=== PATIENT | male | born 1940 | race Caucasian/White ===

== ENCOUNTER 2017-06-25 16:25 | Emergency (ER) | payer BC ==
[~2017-06-25] VITALS: Ht 175.3 cm; Wt 80.8 kg
[~2017-06-25 16:25] MED LIST changes: -MULT-1027 PO; -TIMO-31 OPR
[2017-06-25 16:29] VITALS: TEMP 36.8; Ht 175.3 cm; Wt 80.8 kg
[2017-06-25] MEDS ORDERED: TIMO-31 OPR (16:59)
[2017-06-25] MEDS ORDERED: MULT-1027 PO (16:59)
--- NOTE | 2017-06-25 17:15 | EMERGENCY ROOM VISIT NOTE ---
History Report prepared by Jasen: Jules Bravo Under the Supervision of: Dr. Jeffery Kowalski M.D. First contact with patient: 16:33 Chief Complaint: REFERRED BY DOCTOR Stated Complaint: BLOOD CLOT IN RT THIGH SENT BY History of Present Illness The patient is a 77 year old male who presents to the Emergency Room with complaints of a constant blood clot to his right upper leg beginning three days ago. The patient states he noticed a lump in the lower front portion of his right thigh. He reports he was watching TV when he placed his elbows on his knees and noticed the lump. The patient notes he was evaluated by his PCP today and had an ultrasound that stated the clot was superficial. He states he has a history of a DVT that spread to a PE a few years ago. The patient reports he was hospitalized for two days and placed on Coumadin for 9 months. He notes he has not had another DVT or PE since, and he has stopped Coumadin. The patient states he spends 2-3 hours a day on the computer during the winter, spring, and summer time. He denies fevers, cough, cold, congestion, recent travel, easy bleeding recently, blood in stool, and blood in urine. Source of History: patient Onset: three days ago Position: other (Right, upper, leg) Quality: other (blood clot) Timing: constant Associated Symptoms: No fevers, No cough Note: Denies: cold, congestion, recent travel, easy bleeding recently, blood in stool , and blood in urine. Review of Systems See HPI for pertinent positives & negatives. A total of 10 systems reviewed and were otherwise negative. Past Medical & Surgical Medical Problems: (1) DVT (deep venous thrombosis) (2) Pulmonary embolism Family History FH: heart disease Social History Smoking Status: Never Smoker Smokeless Tobacco Use: No Alcohol Use: occasionally Marital Status: Housing Status: lives with significant other Occupation Status: retired Current/Historical Medications Scheduled Multiple Vitamin (Multi Vitamin), 1 TAB PO DAILY Timolol Maleate (Ophth) (Timoptic), 1 DROPS OPR QAM Allergies Coded Allergies: No Known Allergies (Unverified , 06/25/17) Physical Exam Vital Signs Date Time Temp Pulse Resp B/P (MAP) Pulse Ox O2 Delivery O2 Flow Rate FiO2 06/25/17 17:52 70 18 162/88 96 06/25/17 16:29 36.8 67 20 154/94 96 Room Air Physical Exam GENERAL: Patient is in no acute distress. HEENT: No acute trauma, normocephalic atraumatic, mucous membranes moist, no nasal congestion, no scleral icterus. NECK: No stridor, no adenopathy, no meningismus, trachea is midline. LUNGS: Clear to auscultation bilaterally, no wheeze, no rhonchi, breath sounds equal. HEART: Without murmurs gallops or rubs, regular rate and rhythm. ABDOMEN: Soft, nontender, bowel sounds positive, no hernias, no peritonitis. EXTREMITIES: Fullness and some erythema to the distal medial right thigh. It is a few centimeters in size, mildly tender to palpation. No right leg edema. NEUROLOGIC: Oriented x 3, no acute motor or sensory deficits, no focal weakness. SKIN: No rash, no jaundice, no diaphoresis. Medical Decision & Procedures ER Provider Diagnostic Interpretation: Radiology results as stated below per my review and radiologist interpretation: PREHOSPITAL RIGHT LOWER EXTREMITY VENOUS DOPPLER IMPRESSION: No DVT within the right lower extremity. Small focus of thrombus within a superficial vein of the right medial/distal thigh. This corresponds to the patient's area of swelling. Electronically signed by: Emre Singh M.D. 06/25/2017 2:01 PM ED Course 1640: The patient was evaluated in room A10. A complete history and physical exam was performed. 1654: I discussed the patient's case with Dr. Singh, Radiology. He states the clot is very small and very far away from any deep vein. He notes they typically do not treat these clots with anticoagulation. 1658: I paged Dr. Chirinos's office. Case management called the office and it was closed. They have paged his on-call physician. 1745: I discussed the patient's case with Dr. Mills, [facility]. She states the patient was sent to the ED through [facility]. She suggested the patient is okay to be discharged. 1746: Reevaluated the patient. Discussed results and discharge instructions: he verbalized understanding and agreement. The patient is ready for discharge. Medical Decision The patient is a 77 year old male who presents to the ED with complaints of a constant blood clot. Differential diagnoses considered include DVT or superficial thrombophlebitis, cellulitis, clotting disorder, immobility, coagulopathy. Patient presents with a superficial thrombophlebitis of the distal medial right thigh. I did speak to the radiologist who read his ultrasound study. This is a small superficial clot and is not close to any deep vein. It was not felt that anticoagulation would be indicated. I did also speak with the [facility] outpatient physician on-call. No anticoagulation is required. The patient will be using Motrin 3 times a day for inflammation. Some warm compress and heat to the area are being suggested. The patient will return for spreading of the clot or worsening symptoms. He will be followed as an outpatient to see if things progress to the point where he needs anticoagulation. The patient was reassured. He was discharged home. Medication Reconcilliation Current Medication List: was personally reviewed by me Blood Pressure Screening Patient's blood pressure: Elevated blood pressure Blood pressure disposition: Referred to PCP Consults Time Called: 1652 Consulting Physician: Dr. Singh, Radiology Returned Call: 1653 I discussed the patient's case with Dr. Singh, Radiology. He states the clot is very small and very far away from any deep vein. He notes they typically do not treat these clots with anticoagulation. Additional Consults: Time Called: 1657 Consulted Physician: Dr. Mills, [facility] Returned Call: [phone] Additional Comments: I discussed the patient's case with Dr. Mills, [facility]. She states the patient was sent to the ED through [facility]. She suggested the patient is okay to be discharged. Impression Primary Impression: Superficial thrombophlebitis of right leg Scribe Attestation The scribe's documentation has been prepared under my direction and personally reviewed by me in its entirety. I confirm that the note above accurately reflects all work, treatment, procedures, and medical decision making performed by me. Departure Information Dispostion Home / Self-Care Referrals Tai Chirinos III, M.D. (PCP) Forms HOME CARE DOCUMENTATION FORM, IMPORTANT VISIT INFORMATION, WORK / SCHOOL INSTRUCTIONS Patient Instructions [facility] Additional Instructions warm compresses for 40 minutes at a time every few hours for the next week use motrin 600 mg (3 tabs) 3x per day for 1 week see ajay villasenor for a recheck in a few days return for fever or if symptoms seem to be worsening based on current literature and consults--coumadin is not needed for this type of superficial clot
[2017-06-25 17:52] VITALS: BP 162/88; PULSE 70; O2SAT 96
== END 2017-06-25 17:53 | disposition home or self-care (01) ==
LOC: C.EDB 16:27 → C.EDA 17:53
DX: I80.01 Phlebitis and thrombophlebitis of superficial vessels of right lower extremity (principal); Z86.711 Personal history of pulmonary embolism; Z86.718 Personal history of other venous thrombosis and embolism

== ENCOUNTER → 2017-06-25 | Outpatient (CLI) | payer BC, OTHER ==
[~2017-06-25] MED LIST: ENOX80IN SQ; MULT-1027 PO; TIMO-31 OPR; WARF5TAB90 PO
--- NOTE | 2017-06-25 14:03 | DIAGNOSTIC IMAGING REPORT ---
RIGHT LOWER EXTREMITY VENOUS DOPPLER HISTORY: RIGHT THIGH PAIN AND SWELLING COMPARISON STUDY: None. FINDINGS: There is normal compressibility, flow, and augmentation within the right lower extremity deep venous system. Small focal superficial thrombus seen within the medial distal thigh. IMPRESSION: No DVT within the right lower extremity. Small focus of thrombus within a superficial vein of the right medial/distal thigh. This corresponds to the patient's area of swelling. Electronically signed by: Emre Singh M.D. 06/25/2017 2:01 PM Dictated Date/Time: 06/25/2017 2:00 PM
== END | disposition home or self-care (01) ==
LOC: C.ULTRBC 13:19
PROVIDERS: ATTEND Family Medicine
DX: M79.89 Other specified soft tissue disorders (principal)

== ENCOUNTER 2023-10-30 06:27 | Observation (INO) ==
--- NOTE | 2023-09-11 11:47 | PAT Medication Instructions ---
Medication Instructions Date of Service September 11, 2023 Home Medications multivitamin 1 tab PO DAILY dorzolamide 22.3 mg-timolol 6.8 mg/mL eye drops 1 drp OPB BID tamsulosin 0.4 mg capsule 0.4 mg PO QAM warfarin 5 mg tablet 5 mg PO UD calcium carbonate 600 mg-vitamin D3 5 mcg (200 unit) capsule (Calcium 600 + D(3)) 1 cap PO DAILY furosemide 40 mg tablet 40 mg PO QAM PRN Fluid Retention prednisolone acetate 1 % eye drops,suspension 1 drp OPR BID ASK your prescriber and surgeon warfarin 5 mg tablet 5 mg PO UD DO NOT take the morning of surgery multivitamin 1 tab PO DAILY calcium carbonate 600 mg-vitamin D3 5 mcg (200 unit) capsule (Calcium 600 + D(3)) 1 cap PO DAILY furosemide 40 mg tablet 40 mg PO QAM PRN Fluid Retention Take morning of surgery With a small sip of water, OTHERWISE NOTHING TO EAT OR DRINK AFTER MIDNIGHT: dorzolamide 22.3 mg-timolol 6.8 mg/mL eye drops 1 drp OPB BID tamsulosin 0.4 mg capsule 0.4 mg PO QAM prednisolone acetate 1 % eye drops,suspension 1 drp OPR BID Take evening before surgery dorzolamide 22.3 mg-timolol 6.8 mg/mL eye drops 1 drp OPB BID prednisolone acetate 1 % eye drops,suspension 1 drp OPR BID Other Notes If you have any questions please call us at [phone] or [phone] or [phone] or [phone]
--- NOTE | 2023-09-21 11:48 | Anesthesiology Consultation ---
Date of Service September 21, 2023 Assessment & Plan (1) Encounter for pre-operative examination: - Check coags AM DOS (warfarin instructions per surgeon/S AC clinic. Patient has not received preop warfarin instructions or if bridging being done yet. Will follow-up with patient once recommendations provided to ensure appropriate neuraxial timing). - Infectious disease screening: Per assessment on 09/21/23: No known recent infectious disease contacts or current infectious disease symptoms. - Outpatient joint assessment: Pt currently scheduled for inpatient pathway. If surgeon requests review for outpatient joint pathway, patient is not recommended candidate for outpatient joint program from anesthesia standpoint based upon available information. - PCP visit (09/03/23): "LLE swelling. Saw [facility] 08/20. Doppler done- Neg for DVT. Had INR. Done also.. He has 2+ bilateral edema up to knees.. Venous stasis of lower extremity.. Furosemide 40 MG Oral Tablet (Lasix); Take one pill daily in the morning for 3 days, then one a day if needed" - Patient had feet/calf/knee swelling complaints. PCP ordered LE doppler 08/28/23 which showed chronic RLE DVT with no new DVT in RLE and no evidence of LLE DVT. PCP recommended compression stockings which patient replied he has been using. PCP updated labs for further evaluation of this which noted elevated ESR, WNL uric acid, evidence of prior Lyme disease but IgM was negative. Patient updated PCP 09/21/23 indicating that his feet/calf/knee swelling is now "minimal" with worst residual issues in the right knee. Awaiting PCP response (S note started). Chart Review Chart Review: Patient seen in Pre Admission Testing Teaching & Discussion Pre-Anesthesia Teaching/Discussion Notes: Instructed NPO after midnight before surgery,except medications with 15 cc of water. Medication instructions provided according to the PAT guidelines. History Surgery Operation Date: 10/30/23 11:00 Proposed Procedures p Right Anterior Total Hip Arthroplasty - Luciano Dent, Height/Weight Height: 5 ft 9 in Weight: 75.1 kg Allergies Allergy/AdvReac Type Severity Reaction Status Date / Time No Known Allergies Allergy Verified 09/09/23 14:33 Medications Home Medications Medication Instructions Recorded Confirmed Last Taken multivitamin 1 tab PO DAILY ##0 06/25/17 09/09/23 11/09/21 dorzolamide 22.3 mg-timolol 6.8 1 drp OPB BID 11/09/21 09/09/23 11/09/21 mg/mL eye drops tamsulosin 0.4 mg capsule 0.4 mg PO QAM 11/09/21 09/09/23 11/09/21 warfarin 5 mg tablet 5 mg PO UD 11/09/21 09/09/23 11/09/21 calcium carbonate 600 mg-vitamin 1 cap PO DAILY 09/09/23 09/09/23 Unknown D3 5 mcg (200 unit) capsule (Calcium 600 + D(3)) furosemide 40 mg tablet 40 mg PO QAM PRN Fluid Retention 09/09/23 09/09/23 Unknown prednisolone acetate 1 % eye 1 drp OPR BID 09/09/23 09/09/23 Unknown drops,suspension Past Medical History Medical History Glaucoma Hx of deep venous thrombosis RLE DVT > PE (2012) after 9 hour plane ride RLE (2017), unknown etiology Taking warfarin Hx pulmonary embolism RLE DVT > PE (2012) after 9 [place] ride Lupus anticoagulant disorder Follows with [facility] hematology Macular edema right eye Osteoarthritis of right hip Exercise / Class Metabolic Activity III < 4 Walking/Shop/Light housework Past Surgical History Surgical History Hx of appendectomy Hx of bilateral cataract extraction Hx of colonoscopy Hx of oral surgery 1984 Hx of transurethral resection of prostate 2021 Past Anesthesia History No Hx of Anesthesia Complications and No Family Hx of Anesthesia Complications History of PONV No Hx of PONV and No Hx of Motion Sickness Social History Smoking Status: Never smoker Do You Dip or Chew Tobacco: No Hx Alcohol Use: No Hx Substance Use: No substance use type: does not use Review of Systems Patient denies chest pain, shortness of breath, fever, chills, cough, wheezing, palpitations. Physical Exam Vital Signs BP 145/79 P 65 TEMP 97.7 SP02 99%RA RESP 18 Physical Mildly decreased cervical extension range of motion. Full TMJ range of motion. TMD 3 finger breaths Mallampati Score III Dentition: intact, multiple crowns Lungs: clear throughout to auscultation Cardiac: regular rate and rhythm, no murmurs noted Spine: normal Carotid arteries: negative bruit Extremities: trace LE pitting edema Lab Results Anesthesia Preop Results Results Anesthesia Widget: WBC 8.66 K/ul (4.8-10.8) 09/21/23 Hgb 13.3 g/dl (14.0-18.0) L 09/21/23 Hct 39.8 % (42.0-52.0) L 09/21/23 Plt 219 K/uL (130-400) 09/21/23 Na 137 mmol/L (136-145) 09/21/23 K 4.8 mmol/L (3.5-5.1) 09/21/23 Cl 104 mmol/L (98-107) 09/21/23 CO2 29 mmol/L (21-32) 09/21/23 BUN 10 mg/dl (6-23) 09/21/23 Creat 0.71 mg/dl (0.6-1.4) 09/21/23 Glucose Level 104 mg/dl (70-99(Fasting)) H 09/21/23 PT 39.8 Seconds (9.0-12.0) H 09/21/23 PTT 49 Seconds (21-31) H 09/21/23 INR 4.2 (0.9-1.1) H 09/21/23 Blood Type A Positive 09/21/23 Antibody Screen NEGATIVE 09/21/23 Testing Laboratory Results 09/18/23 Lyme IgM negative Lyme IgG positive Lyme disease antibody screen positive Uric acid 4.3 ESR 30 Electrocardiogram Date: 09/21/23 SB at 59bpm. Early repolarization. "Otherwise normal ECG" Compared to 08/23/2012, PACs no longer present per door captain comparison. Chest X-Ray Date: 09/21/23 FINDINGS: A few small scattered calcified granulomas are noted. Otherwise, the lungs are clear. No pleural effusions. No pneumothorax. The cardiac silhouette is normal in size. Advanced degenerative changes within the shoulders. IMPRESSION: No acute process. Other Testing LE Duplex B/L Date: 08/28/23 Chronic deep venous thrombosis in the right lower extremity in the segments as noted above due to the chronic changes visualized by duplex. Left lower extremity with no evidence of acute deep venous thrombosis.
--- NOTE | 2023-10-29 08:26 | History & Physical Report ---
Date of Service October 29, 2023 Assessment & Plan (1) Osteoarthritis of right hip: We will proceed with a right anterior total of arthroplasty. Postoperatively he will be started back on Lovenox and Coumadin for DVT prophylaxis. He will be kept overnight in the hospital for postop medical management. He plans to use energy physical therapy for discharge. History of Present Illness Chief Complaint: Osteoarthritis of the right hip. Primary Care Provider: Tai Chirinos MD Chivo is a pleasant 83-year-old male who has been dealing with chronic increasing right hip pain. There is times where he cannot walk. Other times, it does not hurt him too bad. It has been getting worse and worse. He had injections at [facility] into his hip joint. The injection did not help much. It is to the point where it is really affecting his quality of life. 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 After failing conservative treatment, he has elected to proceed with a right anterior total of arthroplasty. Allergies Allergy/AdvReac Type Severity Reaction Status Date / Time No Known Allergies Allergy Verified 09/09/23 14:33 Home Medications Medication Instructions Recorded Confirmed Type multivitamin 1 tab PO DAILY ##0 06/25/17 09/09/23 History dorzolamide 22.3 mg-timolol 6.8 1 drp OPB BID 11/09/21 09/09/23 History mg/mL eye drops tamsulosin 0.4 mg capsule 0.4 mg PO QAM 11/09/21 09/09/23 History warfarin 5 mg tablet 5 mg PO UD 11/09/21 09/09/23 History calcium carbonate 600 mg-vitamin 1 cap PO DAILY 09/09/23 09/09/23 History D3 5 mcg (200 unit) capsule (Calcium 600 + D(3)) furosemide 40 mg tablet 40 mg PO QAM PRN Fluid Retention 09/09/23 09/09/23 History prednisolone acetate 1 % eye 1 drp OPR BID 09/09/23 09/09/23 History drops,suspension Past Med/Surg History Problem List Medical History Lupus anticoagulant disorder Follows with [facility] hematology Hx of deep venous thrombosis RLE DVT > PE (2012) after 9 hour plane ride RLE (2018), unknown etiology Taking warfarin Hx pulmonary embolism RLE DVT > PE (2012) after 9 [place] ride Macular edema right eye Glaucoma Osteoarthritis of right hip Surgical History Hx of oral surgery 1983 Hx of appendectomy Hx of colonoscopy Hx of bilateral cataract extraction Hx of transurethral resection of prostate 2021 Social History Smoking Status: Never smoker Second Hand Exposure: No; Do You Dip or Chew Tobacco: No; Tobacco Cessation Education Requested by Patient: No Hx Alcohol Use: No Hx Substance Use: No Preferred Language: Guatemalan Communication Ability: Effective Reheater Helper Required: No Beliefs That Will Affect Care: None Current Living Situation: Spouse Other Information That Helps Us Care for You: No Feels Safe at Home: Yes Safety Concerns: Feels Safe At This Time Assistive Devices: Glasses Review of Systems All systems reviewed & are unremarkable except as noted in HPI & below. Physical Exam On physical examination of the right hip, he has decreased range of motion. He is pain with forced internal and external rotation. All of his pain is located in his groin.. Constitutional WD/WN, vitals as above Eyes PERRL, conjunctivae normal, anicteric sclerae ENMT external ear and nose normal, oropharynx normal Neck trachea midline, no thyromegaly Respiratory normal respiratory effort Cardiovascular RRR, no murmur, no edema Gastrointestinal (Abdomen) normal bowel sounds, soft, nontender, no hepatosplenomegaly Psychiatric A+Ox3, euthymic affect Results & Data Results & Data Laboratory Results . Diagnostic Findings X-rays of the right hip show advanced osteoarthritis with joint space narrowing, osteophyte formation, and [id number] articulation. PG Care Time/CCT Total # of Minutes Spent Total Time Spent with Patient: Total time spent is greater than 50% in coordination of care (as documented) at patient's floor/unit and/or counseling patient: Coding Level of Care Code None Diagnoses Osteoarthritis of right hip M16.11
--- NOTE | 2023-10-30 06:23 | History & Physical Bridge Note ---
Date of Service October 30, 2023 History & Physical Bridge Note I have examined the patient, reviewed the History & Physical and in the interval since the performance of the History & Physical I have noted the following changes of clinical significance: no changes noted
[2023-10-30] MEDS ORDERED: BUPIVACAINE 0.5 % 5 MG/1 ML PF 10ML VIAL ONE (06:29)
[2023-10-30] MEDS ORDERED: MIDAZOLAM HCL 1 MG/ML 2ML VIAL ONE (06:46)
[2023-10-30] MEDS ORDERED: ONDANSETRON INJ 2 MG/ML 2 ML VIAL IV PRN ×2 (06:48→09:30)
[2023-10-30] MEDS ORDERED: ATROPINE SULFATE 0.1 MG/ML 10ML SYR IV PRN (06:48)
[2023-10-30] MEDS ORDERED: fentaNYL citrate PF 100 MCG/2 ML VIAL IV PRN (06:48)
[2023-10-30] MEDS ORDERED: ePHEDrine sulfate 50 MG/ML AMP IV PRN (06:48)
[2023-10-30] MEDS ORDERED: PROPOFOL IV EMULSION 10 MG/ML 20 ML VIAL IV ONE ×2 (06:54)
[2023-10-30] MEDS ORDERED: fentaNYL citrate PF 100 MCG/2 ML VIAL ONE (06:54)
[2023-10-30] MEDS ORDERED: ONDANSETRON INJ 2 MG/ML 2 ML VIAL ONE (06:54)
[2023-10-30] MEDS: LR 500ML BOLUS, THEN 15ML/HR IV SCH (07:05)
[2023-10-30] MEDS: GABAPENTIN 300 MG CAP PO SCH (07:15)
[2023-10-30] MEDS: ACETAMINOPHEN 500 MG TAB PO SCH (07:15)
[2023-10-30] MEDS: LR 60ML/HR IV SCH (07:15)
[2023-10-30] MEDS: dexAMETHasone**PF** 10 MG/ML VIAL IV SCH (07:16)
[2023-10-30] MEDS: FAMOTIDINE 20 MG TAB PO SCH (07:16)
[2023-10-30 07:40] LABS: INR 1.2 (0.9-1.1); Partial Thromboplastin Time 28 Seconds (21-31); Prothrombin Time 12.4 Seconds (9.0-12.0)
[2023-10-30] MEDS: TRANEXAMIC ACID 1,000 MG **IV Pre-op IV SCH (07:44)
[2023-10-30] MEDS: ceFAZolin 2000MG 2,000 MG/15 ML SYR IV SCH ×2 (07:59→17:01)
[2023-10-30] MEDS ORDERED: PHENYLEPHRINE 100MCG/ML 10ML SYR IV ONE (08:32)
[2023-10-30] MEDS ORDERED: ePHEDrine sulfate 50 MG/5 ML SYR ONE (08:32)
[2023-10-30] MEDS ORDERED: PHENYLEPHRINE HCL 10 MG/ML VIAL ONE (08:32)
[2023-10-30] MEDS: ROPIV 0.5% 246mg, Ketorolac 30mg, EPINEPHrine 0.5mg in NSS INFIL SCH (08:42)
[2023-10-30] MEDS: ORTHO JOINT ANESTHETIC ONE (08:43)
[2023-10-30] MEDS ORDERED: SODIUM CHLORIDE 0.9% PF INJ 10 ML VIAL ONE (08:45)
[2023-10-30] MEDS ORDERED: ePHEDrine sulfate 50 MG/ML AMP ONE (08:45)
[2023-10-30] MEDS: TRANEXAMIC ACID 1,000 MG **IV Intra-op IV SCH (09:00)
--- OUTSIDE RECORDS SUMMARY | 2023-10-30 09:01 | External Medical Summary | Summary of Care ---
Author Name Unknown Organization [facility] Address [address] [place] [address] Phone [phone] Care Team Providers Care Project Development Coordinator Name Role Phone Candis GARCIA MD, Tai Kellogg Primary Care Provider [phone] Reason for Visit * Reason Comments Dosage Adjustment In Person (Anticoag Cl inic) Encounter Details Date Type Department Care Team (Latest Contact Info) Description 10/19/2023 9:50 AM EDT Anticoagulation Pharmacy, [facility] [address] [place] [address] Pharmacist2, [facility] [address] [place] [address] History of pulmonary embolism*; Anticoagulation management encounter Allergies Active Allergy Reactions Criticality Noted Date Comments Food (See Comments) Anaphylaxis High 12/06/2013 Carleen, swollen airways and shortness of breath documented as of this encounter (statuses as of 10/20/2023) Medications Medication Sig Dispensed Refills Start Date End Date Status MULTIVITAMIN/MINERAL FORMULA TABS OR 1 TABLET DAILY 30 0 07/19/2001 Active Dorzolamide HCl-Timolol Mal 22.3-6.8 MG/ML Ophthalmic Solution (Cosopt Ocumeter Plus) INSTILL 1 DROP INTO EACH EYE TWICE DAILY 02/04/2021 Active Dry Eye Relief Drops 0.2-0.2-1 % Ophthalmic Solution (Glycerin-Hypromellos e-PEG 400) Instill into eye . Active Calcium Carb-Cholecalciferol 600-10 MG-MCG Oral Tablet Take by mouth. Active Tamsulosin HCl 0.4 MG Oral Capsule (Flomax)Indications:B PH with obstruction/lower urinary tract symptoms,Overflow incontinence of urine,Bladder outlet obstruction Take 1 Capsule by mouth in the morning. 90 Capsule 3 11/17/2022 Active prednisoLONE Acetate 1 % Ophthalmic Suspension (Pred Forte) Instill 1 Drop into the right eye in the morning and 1 Drop at noon and 1 Drop in the evening and 1 Drop before bedtime. 03/03/2023 Active Bromfenac Sodium (Once-Daily) 0.09 % Ophthalmic Solution Instill 1 Drop into the right eye in the morning and 1 Drop before bedtime. 03/02/2023 Active Warfarin Sodium 5 MG Oral Tablet (Coumadin) TAKE 1 TABLET BY MOUTH IN THE EVENING OR DIRECTED BY COUMADIN CLINIC 30 Tablet 5 03/16/2023 Active Calcium 1200 6482-9609 MG-UNIT Oral Tablet Chewable Take 1 Tablet by mouth in the morning. Active Timolol Maleate Powder Active Enoxaparin Sodium 80 MG/0.8ML Injection Solution Prefilled Syringe (Lovenox)Indications: History of pulmonary embolism Inject 80 mg under the skin in the morning and 80 mg before bedtime. Take as directed by anticoag clinic (#10 syringes in total). 8 mL 10/05/2023 Active Doxycycline Hyclate 100 MG Oral CapsuleIndications:Ly me disease,Effusion of both knee joints Take 1 Capsule by mouth in the morning and 1 Capsule before bedtime. 28 Capsule 10/12/2023 Active documented as of this encounter (statuses as of 10/20/2023) Active Problems Problem Noted Date Diagnosed Date Renal cyst, acquired, right 04/10/2022 S/P TURP 04/10/2022 BPH with obstruction/lower urinary tract symptom s 04/10/2022 Primary open angle glaucoma (POAG) of both eyes 12/13/2020 Dyslipidemia 12/13/2020 History of pulmonary embolism 10/24/2015 NODULAR PROSTATE 10/28/2007 PULSATILE TINNITUS Overview: recurrent Macular edema documented as of this encounter (statuses as of 10/20/2023) Resolved Problems Problem Noted Date Diagnosed Date Resolved Date Deep vein thrombosis (DVT) of lower extremity 11/24/19 18 07/16/2020 Venous thrombosis 08/25/2012 10/24/2015 Pulmonary embolism 08/25/2012 09/14/201 6 Anticoagulation management encounter 08/25/2012 10/24/2015 long-term current use of ant icoagulant therapy 08/25/2012 11/09/2014 Overview: ICD-10 update of inactive term Nodular prostate 10/28/2007 documented as of this encounter (statuses as of 10/20/2023) Immunizations Name Administration Dates Next Due COVID-19 mRNA, LNP-s, No Pre serve, 2-Dose Series (Pfizer) 11/03/2020,04/26/2020,04/05/2020 Pneumococcal Conjugate Vacc, 13 Valent (Prevnar) 11/09/2014 Pneumococcal Polysaccharide PPV23 (Pneumovax) 08/22/2005 Seasonal Influenza, Trivalen t, (IIV3), with Preserv, (Fluzone) 10/24/2020(Deferred: Patient Refused) TD - Tetanus/Diptheria (ADULT) 10/18/1998 TD, Preservative Free 11/02/2008 TDAP (age 10 and older)(Boostrix) 10/19/2018 Varicella Zoster Vaccine (Adult) 11/13/2016 Zoster Vaccine Recombinant (Shingrix) 01/21/2019 ,10/08/2018 documented as of this encounter Social History Tobacco Use Types Packs/Day Years Used Date Smoking Tobacco: Never Smokeless Tobacco: Never Alcohol Use Standard Drinks/Week Comments No 0 (1 standard drink = 0.6 oz pur e alcohol) PHQ-2 Answer Date Recorded PHQ-2 Score 0 11/30/2019 Utilities Answer Date Recorded Do you have trouble paying y our heating, water, or electric bill? (Adult - for ages 18 years and over) Not on file 07/28/2023 Is your family able to pay t he heat, water, or electric bill? (Household - for ages 0-17 years) Not on file 07/28/2023 Does your family have access to good internet? (Household - for ages 0-17 years) Not on file 07/28/2023 Social Connections Answer Date Recorded How often do you feel lonely or isolated from those around you? (Adult - for ages 18 years and over) Not on file 07/28/2023 Sex and Gender Information Value Date Recorded Sex Assigned at Male 10/03/2023 8:56 AM EDT Gender Identity Male 10/03/2023 8:56 AM EDT Sexual Orientation Straight 10/03/2023 8: 56 AM EDT Job Start Date Occupation Industry Not on file Not on file Not on file documented as of this encounter Progress Notes * Esau Cuevas RPh - 10/19/2023 9:50 AM EDT Images from the original note were not included. Medication Therapy Disease Management - Anticoagulation Patient: Chivo Rosales | : 1940 Subjective Patient-Reported Symptoms: Patient Findings Positives: Upcoming invasive procedure (Hip Replacement upcoming 10/30/23), Change in medications (Pt has been on doxycycline for 11 days so far and will continue until the .) Negatives: Signs/symptoms of thrombosis, Signs/symptoms of bleeding, Change in health, Change in alcohol use, Change in activity, Missed doses, Extra doses, Change in diet/appetite, Bruising Objective Current Warfarin Dose As of 10/19/2023 Warfarin maintenance plan: 5 mg (5 mg x 1) every Mon, Wed, Fri; 2.5 mg (5 mg x 0.5) all other days INR Result As of 10/19/2023 INR goal: 2.0-3.0 INR used for dosin.9 (10/19/2023) Assessment & Plan Warfarin Plan As of 10/19/2023 Full warfarin instructions: 10/18: Hold; 10/24: Hold; 10/25: Hold; 10/26: Hold; 10/27: Hold; 10/28: Hold; 10/29: 7.5 mg; 10/30: 7.5 mg; Otherwise 5 mg every Mon, Wed, Fri; 2.5 mg all other days Next INR check: 11/13/2023 Repeat PT/INR in 2 week(s) Weekly dose: not changed Additional Dosing Information: I spent a total of 10-19 minutes (exact time 12 mins) on the date of service in preparation, delivery, and documentation of the care provided to Chivo Rosales excluding any time spent in the performance of separately billed services or time spent by another provider/QHP. Esau Cuevas RPh Clinical Pharmacist 10/19/2023, 9:50 AM documented in this encounter Plan of Treatment Upcoming Encounters Date Type Department Care Team (Late st Contact Info) Description 11/13/2023 9:00 AM EDT Anticoagulation Pharmacy, [facility] [address] [place] [address] Pharmacist2, [facility] Sp [address] [place] [address] 12/21/2023 9:00 AM EST Office Visit Family Practice [facility] [address] [place] [address] Tai Chirinos III, MD 200 [facility] [place] [address] 01/05/2024 9:00 AM EST Laboratory Laboratory [facility] [address] [place] [phone] [place], Lab [facility] [address] [facility] [place] [address] 01/12/2024 12:30 PM EST Office Visit Hematology/Oncology [facility] [address] [place] [phone] Maxine Lozada MD 200 [facility] [place] [address] 03/07/2024 10:15 AM EST Imaging Radiology [facility] [address] [place] [address] 03/15/2024 10:00 AM EST Office Visit Urology, [facility] [address] [place] [address] Brayden Lugo MD [address] [place] [address] Health Maintenance Due Date Last Done Comments Adult Wellness Visit 05/18/2005 Depression Screening 11/28/2020 11/29/2019 COVID-19 Vaccine (4 - 2023-2 4 season) 2023 11/03/2020, 04/26/2020, 04/05/2020 DTap/Tdap Vaccines (2 - Td o r Tdap) 10/19/2028 10/19/2018, 11/02/2008, 10/18/1998 Pneumococcal Vaccine: 65+ Years Completed 11/09/2014, 08/22/2005 Zoster Vaccines Completed 01/21/2019, 10/08/2018, 11/13/2016 HPV (Gardasil) Vaccine Aged Out No lo nger eligible based on patient's age to complete this topic Hepatitis B Vaccine Aged Out No longe r eligible based on patient's age to complete this topic MENINGOCOCCAL (MENACTRA/MENVEO) Aged Out No longer eligible b ased on patient's age to complete this topic documented as of this encounter Medical Devices Implanted Type Area Satellite Installation Technician Device Identifier Shelf Expiration Date Model / Serial / Lot Lens Intraoc 20.0 - [id number] - [id number] Implanted:Qty: 1 on 11/11/2016 by Roni Castillo MD at [facility] Right: Eye [employer]OM[employer] 03/11/2021 [id number] / [id number] / [id number] documented as of this encounter Procedures Procedure Name Priority Date/Time Associated Diagnosis Comments INR FINGERSTICK, POINT OF CARE STAT 10/19/2023 9:54 AM EDT History of pulmonary embolism Anticoagulation management encounter documented in this encounter Results * INR FINGERSTICK, POINT OF CARE (10/19/2023 9:54 AM EDT) Fingerstick INR 3.9 INR 9:56 AM EDT [facility] 56-02 Blood 10/19/2023 9:54 AM EDT 10/19/2023 9:56 AM EDT Narrative [facility] 56-02 - 10/19/2023 9:56 AM EDT Therapeutic ranges for non-operative patients: Prophylaxsis/treatment of DVT: (Range:2.0-3.0) Treatment of pulmonary embolism:(Range:2.0-3.0) Prevention of systemic embolism from: -tissue heart valves -acute myocardial infarction -valvular heart disease -atrial fibrillation (Range: 2.0-3.0) Mechanical prosthetic valves: (Range: 2.5-3.5) Gabrielsusan Cuevas [facility] LAB POINT O F CARE TEST DOCKED DEVICE UNSOLICITED RESULTS [facility] [address] documented in this encounter Visit Diagnoses Diagnosis History of pulmonary embolism- Primary Personal history of pulmonary embolism Anticoagulation management encounter Encounter for therapeutic drug monitoring documented in this encounter Advance Directives * Full Code (Latest Code Status on File) Date Activated Date Inactivated Comments 09/30/2021 8:56 AM 09/30/2021 2:27 PM This order r eflects the patients wishes and were consensually agreed upon. Question Answer Comments Discussion of Advance Directives occurred with: Not Discussed * Full Code Date Activated Date Inactivated Comments 09/30/2021 6:35 AM 09/30/2021 8:56 AM This order r eflects the patients wishes and were consensually agreed upon. Question Answer Comments Discussion of Advance Directives occurred with: Not Discussed * Full Code Date Activated Date Inactivated Comments 11/11/2016 11:04 AM 11/11/2016 5:54 PM This order reflects the patients wishes and were consensually agreed upon. Care Teams Project Development Coordinator Relationship Specialty Start Date End Date Tai [facility]irinos III, [facility] [address] [facility] [address] PCP - General 02/28/99 documented as of this encounter"
--- OUTSIDE RECORDS SUMMARY | 2023-10-30 09:01 | External Medical Summary ---
Author Name Unknown Address Unknown Organization K01:[facility] [place] [facility] [address] [place] [address] Laboratory Report Ordering Provider Test Date Status TONY GARCIA 10/07/2023 11:29:46 Final Observation Date Value Abnormality Reference (Units ) Status Nuclear Ab [Presence] in Serum by Immunofluorescence 10/07/2023 11:29:46 Positive Abnormal Negative Final YENY, dilution 10/07/2023 11:29:46 1:320 <1:80 (Titer) Final YENY, pattern 10/07/2023 11:29:46 Spindle Final Performing Location [facility] [place] [facility] [address] [place] [address]
--- OUTSIDE RECORDS SUMMARY | 2023-10-30 09:01 | External Medical Summary | Summary of Care ---
Author Name Unknown Organization [facility] Address [address] [place] [address] Phone [phone] Care Team Providers Care Odd Job Laborer Name Role Phone Candis GARCIA MD, Tai Kellogg Primary Care Provider [phone] Reason for Visit * Reason Onset Date Comments Call Back 10/13/2023 Encounter Details Date Type Department Care Team (Late st Contact Info) Description 10/13/2023 Telephone Centralized Clinical Pharmacy Services, Boogie Baeza [address] [place] [address] [place] [address] Pharmacist2, [facility] 200 [facility] [place] [address] Call Back Allergies Active Allergy Reactions Criticality Noted Date Comments Food (See Comments) Anaphylaxis High 12/06/2013 Carleen, swollen airways and shortness of breath documented as of this encounter (statuses as of 10/13/2023) Medications Medication Sig Dispensed Refills Start Date [...] 30 Tablet 5 03/16/2023 Active Calcium 1200 8089-8780 MG-UNIT Oral Tablet Chewable Take 1 Tablet [...] as of this encounter (statuses as of 10/13/2023) Active Problems Problem Noted Date Diagnosed Date Renal cyst, acquired, right 04/10/2022 S/P TURP 04/10/2022 BPH with obstruction/lower urinary tract symptom s 04/10/2022 Primary open angle glaucoma (POAG) of both eyes 12/13/2020 Dyslipidemia 12/13/2020 History of pulmonary embolism 10/24/2015 NODULAR PROSTATE 10/28/2007 PULSATILE TINNITUS Overview: recurrent Macular edema documented as of this encounter (statuses as of 10/13/2023) Resolved Problems Problem Noted Date Diagnosed Date Resolved Date Deep vein thrombosis (DVT) of lower extremity 11/24/19 18 07/16/2020 Venous thrombosis 08/25/2012 10/24/2015 Pulmonary embolism 08/25/2012 6 Anticoagulation management encounter 08/25/2012 10/24/2015 [facility] current use of ant icoagulant therapy 08/25/2012 11/09/2014 Overview: ICD-10 update of inactive term Nodular prostate 10/28/2007 documented as of this encounter (statuses as of 10/13/2023) Immunizations Name Administration Dates Next Due COVID-19 mRNA, LNP-s, No Pre serve, 2-Dose Series (Pfizer) 11/03/2020,04/26/2020,04/05/2020 Pneumococcal Conjugate Vacc, 13 Valent (Prevnar) 11/09/2014 Pneumococcal Polysaccharide PPV23 (Pneumovax) 08/22/2005 Seasonal Influenza, Trivalen t, (IIV3), with Preserv, (Fluzone) 10/24/2020(Deferred: Patient Refused) TD, Preservative Free 11/02/2008 TDAP (age 10 [...] on file documented as of this encounter Miscellaneous Notes * Telephone Encounter - Akua Flowers RPh - 10/13/2023 10:15 AM EDT Contacts Contact Date/Time Type Contact Phone/Fax 10/13/2023 09:31 AM EDT Phone (Incoming) Chivo Rosales (Self) [phone] (H) 10/13/2023 10:15 AM EDT Phone (Outgoing) Chivo Rosales (Self) [phone] (H) Spoke to Patient Returned patient's call regarding questions about his upcoming procedure and hold. States that he has a lot of medication changes and wanted to send it in a message so it can be addressed that way. Patient stated they would send a [employer] message with their changes, information and questions. Akua Flowers [facility] Clinical Pharmacist 10/13/2023, 10:24 AM * Telephone Encounter - Kellen Calvillo development manager - 10/13/2023 9:31 AM EDT Caller's name: Chivo Preferred call back number(OFFICE NUMBER FOR ): [phone] Reason for call: Patient calling in regards to an upcoming procedure on 10/29. Would like a call back from [facility] to go over questions and concerns regarding medications. Kellen Calvillo Flower Buncher Or Picker Centralized Clinical Pharmacy Services [address] [place] [address] [address] [place] [address] [id number] 10/13/2023,9:31 AM documented in this encounter Plan of Treatment Upcoming Encounters Date Type Department Care Team (Late st Contact Info) Description 11/13/2023 9:00 AM EDT Anticoagulation Pharmacy, [place] Kacey Horne [address] [place] [address] Pharmacist2, [facility] [address] [place] [address] 12/21/2023 9:00 AM EST Office Visit Family Practice [facility] [address] [place] [address] Tai Chirinos III, MD [address] [place] [address] 01/05/2024 9:00 AM EST Laboratory Laboratory [facility] [place] [address] [place] [phone] [facility] Lab [facility] [address] [facility] [place] [address] 01/12/2024 12:30 PM EST Office Visit Hematology/Oncology [facility] [address] [place] [phone] Maxine Lozada MD [address] [place] [address] 03/07/2024 10:15 AM EST Imaging Radiology [facility] [address] [facility] [place] [address] 03/15/2024 10:00 AM EST Office Visit Urology, [facility] [address] [facility] [place] [address] Brayden Lugo MD [address] [place] [place] [address] Health Maintenance Due Date Last Done Comments Adult Wellness Visit 05/18/2005 Depression Screening 11/28/2020 11/29/2019 COVID-19 Vaccine (2022-2 4 season) 2023 11/03/2020, 04/26/2020, 04/05/2020 DTap/Tdap [...] this encounter Medical Devices Implanted Type Area Ordnance Truck Installation Mechanic Device Identifier Shelf Expiration Date Model / Serial / Lot Lens Intraoc 20.0 - [id number] - [id number] Implanted:Qty: 1 on 11/11/2016 by Roni Castillo MD at OR [facility] Right: Eye [employer] LOMB 03/11/2021 [id number] / [id number] / [id number] documented as of this encounter Advance Directives * Full Code [...] and were consensually agreed upon. Care Teams Odd Job Laborer Relationship Specialty Start Date End Date Tai Chirinos III, MD [address] [facility] [place] [address] PCP - General 02/28/99 documented as of this encounter
--- OUTSIDE RECORDS SUMMARY | 2023-10-30 09:01 | External Medical Summary | Summary of Care ---
Author Name Unknown Organization [facility] Address [address] [place] [address] Phone [phone] Care Team Providers Care Bead Inspector Name Role Phone Candis GARCIA MD, Tai Kellogg Primary Care Provider [phone] Reason for Visit * Reason Onset Date Comments FYI 10/20/2023 Encounter Details Date Type Department Care Team (Late st Contact Info) Description 10/20/2023 Telephone Centralized Clinical Pharmacy Services, Boogie Baeza [address] [place] [address] [place] [address] Pharmacist2, [facility] 200 [facility] [place] [address] FYI Allergies Active Allergy Reactions Criticality Noted Date [...] 30 Tablet 5 03/16/2023 Active Calcium 1200 3845-1992 MG-UNIT Oral Tablet Chewable Take 1 Tablet [...] 08/25/2012 6 Anticoagulation management encounter 08/25/2012 10/24/2015 ad terminal makeup operator current use of ant icoagulant therapy 08/25/2012 [...] encounter Miscellaneous Notes * Telephone Encounter - Esau Cuevas [facility] - 10/20/2023 9:28 AM EDT Note addended. Esau Cuevas PharmD, BCACP, LTAC, [facility] Clinical Pharmacist 10/20/2023, 9:28 AM * Telephone Encounter - Elías Rodriges CPhT - 10/20/2023 9:06 AM EDT Caller's name: patient Preferred call back number(OFFICE NUMBER FOR ): [phone] Reason for call: correction to yesterdays coag note Patient reporting yesterdays coag note should state right hip replacement not dental procedure on 10/30/23. Please correct. Thank you, Elías Rodriges [facility] Formulation Scientist II Centralized Clinical Pharmacy Services ([facility]) 10/20/2023,9:06 AM documented in this encounter Plan of Treatment Upcoming Encounters Date Type Department Care Team (Late st Contact Info) Description 11/13/2023 9:00 AM EDT Anticoagulation Pharmacy, [facility] [place] [address] [place] [address] [address] Pharmacist2, [facility] [address] [place] [address] [address] 12/21/2023 9:00 AM EST Office Visit Family Practice [facility] [place] [address] [place] [address] [address] Candis III, Tai Kellogg MD [address] [place] [address] [address] 01/05/2024 9:00 AM EST Laboratory [facility] [place] [address] [phone] [facility] [place] [address] [address] 01/12/2024 12:30 PM EST Office Visit Hematology/Oncology [facility] [place] [address] [place] [phone] Maxine Lozaad MD [address] [place] [address] 03/07/2024 10:15 AM EST Imaging Radiology [facility] 132 [facility] [place] [address] 03/15/2024 10:00 AM EST Office Visit Urology, [facility] 132 [facility] [place] [address] Brayden Lugo MD [address] [place] [address] Health Maintenance Due Date Last Done Comments [...] this encounter Medical Devices Implanted Type Area Distribution Operations Supervisor Device Identifier Shelf Expiration Date Model / Serial / Lot Lens Intraoc 20.0 - [id number] - [id number] Implanted:Qty: 1 on 11/11/2016 by Roni Castillo MD at [facility] Right: Eye [employer] LOM[employer] 03/11/2021 [id number] / [id number] / [id number] documented as of this encounter Visit Diagnoses Diagnosis History of pulmonary embolism- Primary Personal history of pulmonary embolism documented in this encounter Advance Directives * [...] and were consensually agreed upon. Care Teams Bead Inspector Relationship Specialty Start Date End Date Tai Chirinos III, MD 200 [facility] [place] [address] PCP - General 02/28/99 documented as of this encounter
--- OUTSIDE RECORDS SUMMARY | 2023-10-30 09:01 | External Medical Summary | Summary of Care ---
Author Name Unknown Organization [facility] Address [address] [place] [address] Phone [phone] Care Team Providers Care Radiocommunications Technician Name Role Phone Candis GARCIA MD, Tai Kellogg Primary Care Provider [phone] Reason for Visit * Reason Comments Dosage Adjustment In Person (Anticoag Cl inic) Encounter Details Date Type Department Care Team (Latest Contact Info) Description 10/19/2023 9:50 AM EDT Anticoagulation Pharmacy, [facility] [address] [place] [address] Pharmacist2, [facility] [address] [place] [address] History of pulmonary embolism*; Anticoagulation management encounter Allergies Active Allergy Reactions Criticality Noted Date Comments Food (See Comments) Anaphylaxis High 12/06/2013 Carleen, swollen airways and shortness of breath documented as of this encounter (statuses as of 10/19/2023) Medications Medication Sig Dispensed Refills Start Date [...] 30 Tablet 5 03/16/2023 Active Calcium 1200 0001-7345 MG-UNIT Oral Tablet Chewable Take 1 Tablet [...] as of this encounter (statuses as of 10/19/2023) Active Problems Problem Noted Date Diagnosed Date Renal cyst, acquired, right 04/10/2022 S/P TURP 04/10/2022 BPH with obstruction/lower urinary tract symptom s 04/10/2022 Primary open angle glaucoma (POAG) of both eyes 12/13/2020 Dyslipidemia 12/13/2020 History of pulmonary embolism 10/24/2015 NODULAR PROSTATE 10/28/2007 PULSATILE TINNITUS Overview: recurrent Macular edema documented as of this encounter (statuses as of 10/19/2023) Resolved Problems Problem Noted Date Diagnosed Date Resolved Date Deep vein thrombosis (DVT) of lower extremity 11/24/19 18 07/16/2020 Venous thrombosis 08/25/2012 10/24/2015 Pulmonary embolism 08/25/2012 09/14/201 6 Anticoagulation management encounter 08/25/2012 10/24/2015 alf current use of ant icoagulant therapy 08/25/2012 11/09/2014 Overview: ICD-10 update of inactive term Nodular prostate 10/28/2007 documented as of this encounter (statuses as of 10/19/2023) Immunizations Name Administration Dates Next Due COVID-19 [...] Subjective Patient-Reported Symptoms: Patient Findings Positives: Upcoming dental procedure, Change in medications (Pt has been on doxycycline for 11 daysso far and will continue until the .) Negatives: Signs/symptoms of thrombosis, Signs/symptoms of bleeding, Change in health, Change in alcohol use, Change in activity, Upcoming invasive procedure, Missed doses, Extra doses, Change in diet/appetite, [...] Description 11/13/2023 9:00 AM EDT Anticoagulation Pharmacy, [facility] [address] [place] [address] Pharmacist2, [facility] [address] [place] [address] 12/21/2023 9:00 AM EST Office Visit Family Practice [facility] [address] [place] [address] Tai Chirinos III, MD [address] [place] [address] 01/05/2024 9:00 AM EST Laboratory Laboratory [facility] [address] [place] [phone] [place], Lab [facility] [address] [facility] [place] [address] 01/12/2024 12:30 PM EST Office Visit Hematology/Oncology [facility] [address] [place] [phone] Maxine Lozada MD [address] [place] [address] 03/07/2024 10:15 AM EST Imaging Radiology [facility] [address] [facility] [place] [address] 03/15/2024 10:00 AM EST Office Visit Urology, [facility] [address] [facility] [place] [address] Brayden Lugo MD [address] [place] [place] [address] Health Maintenance Due Date Last Done Comments Adult Wellness Visit 05/18/2005 Depression Screening 11/28/2020 11/29/2019 COVID-19 Vaccine (4 - 2022-2 4 season) 2023 11/03/2020, 04/26/2020, 04/05/2020 DTap/Tdap [...] this encounter Medical Devices Implanted Type Area Mac Developer Device Identifier Shelf Expiration Date Model / Serial / Lot Lens Intraoc 20.0 - [id number] - [id number] Implanted:Qty: 1 on 11/11/2016 by Roni Castillo MD at [facility] Right: Eye [employer] 03/11/2021 [id number] / [id number] / [id number] documented as of this encounter Procedures Procedure Name Priority Date/Time Associated Diagnosis Comments INR FINGERSTICK, POINT OF CARE STAT 10/19/2023 9:54 AM EDT History of pulmonary embolism Anticoagulation management encounter documented in this encounter Results * INR FINGERSTICK, POINT OF CARE (10/19/2023 9:54 AM EDT) Fingerstick INR 3.9 INR 9:56 AM EDT [employer] [facility] Diagnose.me 56-02 Blood 10/19/2023 9:54 AM EDT 10/19/2023 9:56 AM EDT [facility] [employer] [place] 56-02 - 10/19/2023 9:56 AM EDT Therapeutic ranges for non-operative patients: Prophylaxsis/treatment of DVT: (Range:2.0-3.0) Treatment of pulmonary embolism:(Range:2.0-3.0) Prevention of systemic embolism from: -tissue heart valves -acute myocardial infarction -valvular heart disease -atrial fibrillation (Range: 2.0-3.0) Mechanical prosthetic valves: (Range: 2.5-3.5) Esau Jack Mason [facility] LAB POINT O F CARE TEST DOCKED DEVICE UNSOLICITED RESULTS [facility] 56-[address] [facility] [place] [address] documented in this encounter Visit Diagnoses Diagnosis [...] and were consensually agreed upon. Care Teams Radiocommunications Technician Relationship Specialty Start Date End Date Tai [facility]irinos III, MD [address] [facility] [address] P[facility] - General 02/28/99 documented as of this encounter"
--- OUTSIDE RECORDS SUMMARY | 2023-10-30 09:01 | External Medical Summary ---
Author Name Unknown Address Unknown Organization K09:[facility] [place] [address] Laboratory Report Ordering Provider Test Date Status DARI CHAMPION 10/19/2023 09:54:18 Final Therapeutic ranges for non-o perative patients:
Prophylaxsis/treatment of DVT: (Range:2.0-3.0)
Treatment of pulmonary embolism:(Range:2.0-3.0)
Prevention of systemic embolism from:
-tissue heart valves
-acute myocardial infarction
-valvular heart disease
-atrial fibrillation
(Range: 2.0-3.0)
Mechanical prosthetic valves: (Range: 2.5-3.5) Observation Date Value Abnormality Reference (Units ) Status INR in Capillary blood by Coagulation assay 10/19/2023 09:54:18 3.9 (INR) Final Performing Location [facility] [place] [address]
--- OUTSIDE RECORDS SUMMARY | 2023-10-30 09:01 | External Medical Summary | Summary of Care ---
Author Name Unknown Organization [facility] Address [address] [place] [address] Phone [phone] Care Team Providers Care Yoker Name Role Phone Candis GARCIA MD, Tai Kellogg Primary Care Provider [phone] Reason for Visit * Reason Onset Date Comments Medication Refill 10/12/2023 Encounter Details Date Type Department Care Team (Late st Contact Info) Description 10/12/2023 Telephone Rheumatology [place] [id number] [employer] [place] [address] Luciano Murphy MD [facility] [employer] [place] [address] Medication Refill Allergies Active Allergy Reactions Criticality Noted Date Comments Food (See Comments) Anaphylaxis High 12/06/2013 Carleen, swollen airways and shortness of breath documented as of this encounter (statuses as of 10/12/2023) Medications Medication Sig Dispensed Refills Start Date End Date Status MULTIVITAMIN/DIAL MARKER AL FORMULA TABS OR 1 TABLET DAILY 30 0 07/19/2001 Active Dorzolamide HCl-Timolol Mal 22.3-6.8 MG/ML Ophthalmic Solution (Cosopt Ocumeter Plus) INSTILL 1 DROP INTO EACH EYE TWICE DAILY 02/04/2021 Active Dry Eye Relief Drops 0.2-0.2-1 % Ophthalmic Solution (Glycerin-Hypromel lose-PEG 400) Instill into eye . Active Calcium Carb-Cholecalcifer ol 600-10 MG-MCG Oral Tablet Take by mouth. Active Tamsulosin HCl 0.4 MG Oral Capsule (Flomax)Indication s:BPH with obstruction/lower urinary tract symptoms,Overflow incontinence of [...] 30 Tablet 5 03/16/2023 Active Calcium 1200 1703-2418 MG-UNIT Oral Tablet Chewable Take 1 Tablet by mouth in the morning. Active Timolol Maleate Powder Active Enoxaparin Sodium 80 MG/0.8ML Injection Solution Prefilled Syringe (Lovenox)Indicatio ns:History of pulmonary embolism Inject 80 mg under the skin in the morning and 80 mg before bedtime. Take as directed by anticoag clinic (#10 syringes in total). 8 mL 10/05/2023 Active Doxycycline Hyclate 100 MG Oral CapsuleIndications :Lyme disease,Effusion of both knee joints Take 1 Capsule by mouth in the morning and 1 Capsule before bedtime. 28 Capsule 10/12/2023 Active Doxycycline Hyclate 100 MG Oral CapsuleIndications :Lyme disease,Effusion of both knee joints Take 1 Capsule by mouth in the morning and 1 Capsule before bedtime. 28 Capsule 10/07/2023 10/12/2023 Discontinue d(Refill) documented as of this encounter (statuses as of 10/12/2023) Active Problems Problem Noted Date Diagnosed Date Renal cyst, acquired, right 04/10/2022 S/P TURP 04/10/2022 BPH with obstruction/lower urinary tract symptom s 04/10/2022 Primary open angle glaucoma (POAG) of both eyes 12/13/2020 Dyslipidemia 12/13/2020 History of pulmonary embolism 10/24/2015 NODULAR PROSTATE 10/28/2007 PULSATILE TINNITUS Overview: recurrent Macular edema documented as of this encounter (statuses as of 10/12/2023) Resolved Problems Problem Noted Date Diagnosed Date Resolved Date Deep vein thrombosis (DVT) of lower extremity 11/24/19 18 07/16/2020 Venous thrombosis 08/25/2012 10/24/2015 Pulmonary embolism 08/25/2012 6 Anticoagulation management encounter 08/25/2012 10/24/2015 USP current use of ant icoagulant therapy 08/25/2012 11/09/2014 Overview: ICD-10 update of inactive term Nodular prostate 10/28/2007 documented as of this encounter (statuses as of 10/12/2023) Immunizations Name Administration Dates Next Due COVID-19 [...] on file documented as of this encounter Plan of Treatment Upcoming Encounters Date Type Department Care Team (Late st Contact Info) Description 11/13/2023 9:00 AM EDT Anticoagulation Pharmacy, [facility] [address] [facility] [address] [place] [address] Pharmacist2, [facility] [address] [place] [address] 12/21/2023 9:00 AM EST Office Visit Family Practice [facility] [address] [facility] [place] [address] Tai Chirinos III, MD [address] [facility] [place] [address] 01/05/2024 9:00 AM EST Laboratory Laboratory [facility] [address] [place] [phone] [place], Lab [facility] [address] [facility] [place] [address] 01/12/2024 12:30 PM EST Office Visit Hematology/Oncology [facility] [address] [place] [phone] Maxine Lozada MD [address] [facility] [place] [address] 03/07/2024 10:15 AM EST Imaging Radiology [facility] [address] [facility] [place] [address] 03/15/2024 10:00 AM EST Office Visit Urology, [facility] [address] [facility] [place] [address] Brayden Lugo MD [address] [place] [address] Health Maintenance Due Date Last Done Comments [...] this encounter Medical Devices Implanted Type Area Flavoring Oil Filterer Device Identifier Shelf Expiration Date Model / Serial / Lot Lens Intraoc 20.0 - [id number] - [id number] Implanted:Qty: 1 on 11/11/2016 by Roni Castillo MD at [facility] Right: Eye [employer] LOMB 03/11/2021 [id number] / [id number] / [id number] documented as of this encounter Visit Diagnoses Diagnosis Lyme disease Effusion of both knee joints Effusion of lower leg joint documented in this encounter Advance Directives * [...] and were consensually agreed upon. Care Teams Yoker Relationship Specialty Start Date End Date Tai Chirinos III, MD [address] [place] [address] PCP - General 02/28/99 documented as of this encounter
--- OUTSIDE RECORDS SUMMARY | 2023-10-30 09:01 | External Medical Summary ---
Author Name Unknown Address Unknown Organization : Laboratory Report Ordering Provider Test Date Status TONY GARCIA 10/07/2023 11:02:08 Final Observation Date Value Abnormality Reference (Units ) Status Source 10/07/2023 11:02:08 SEE BELOW Final SYNOVIAL FLUID Borrelia sp DNA [Identifier] in Specimen by QUENTIN with probe detection 10/07/2023 11:02:08 Detected Abnormal Not Detec dion Final BORRELIA SPP DNA, QL MISC COMMENT 10/07/2023 11:02:08 SEE BELOW Final The Code of Rosita, Articl e 1 of Chapter 5 of Title
32.1, section 32.1- 137.06, requires that the following
language must be included on every Lyme disease test
report issued by a [place] laboratory:
Patients undergoing a Lyme disease test should be
aware that Lyme disease tests vary and may produce
results that are inaccurate. This means a patient may
not be able to rely on a positive or negative result.
Health care providers are encouraged to discuss Lyme
disease test results with the patient for whom the test
was ordered.
For additional information, please refer to
https://[email or web address]/faq/dpm393
(This link is being provided for informational/
educational purposes only.)
This test was developed and its analytical performance
characteristics have been determined by [employer] [place], [place]. It has
not been cleared or approved by the U.S. Food and Drug
Administration. This assay has been validated pursuant
to the CLIA regulations and is used for clinical
purposes.

Test Performed at:
[employer]
[address] [facility]
[place] [address]
Emre Friedman M.D., Ph.D.,Director of Laboratories Performing Location
--- OUTSIDE RECORDS SUMMARY | 2023-10-30 09:01 | External Medical Summary | Summary of Care ---
Author Name Unknown Organization [facility] Address [address] [place] [address] Phone [phone] Care Team Providers Care Sewage Disposal Engineer Name Role Phone Candis GARCIA MD, Tai Kellogg Primary Care Provider [phone] Reason for Visit * Reason Comments Outpatient Testing Encounter Details Date Type Department Care Team (Late st Contact Info) Description 10/07/2023 11:30 AM EDT Laboratory Laboratory [facility] [address] [place] [phone] [facility] [address] [place] [address] Lyme disease; Effusion of both knee joints; YENY positive Allergies Active Allergy Reactions Criticality Noted Date Comments Food (See Comments) Anaphylaxis High 12/06/2013 Carleen, swollen airways and shortness of breath documented as of this encounter (statuses as of 10/07/2023) Medications Medication Sig Dispensed Refills Start Date [...] 30 Tablet 5 03/16/2023 Active Calcium 1200 1278-7505 MG-UNIT Oral Tablet Chewable Take 1 Tablet by mouth in the morning. Active Timolol Maleate Powder Active Enoxaparin Sodium 80 MG/0.8ML Injection Solution Prefilled Syringe (Lovenox)Indications: History of pulmonary embolism Inject 80 mg under the skin in the morning and 80 mg before bedtime. Take as directed by anticoag clinic (#10 syringes in total). 8 mL 10/05/2023 Active documented as of this encounter (statuses as of 10/07/2023) Active Problems Problem Noted Date Diagnosed Date Renal cyst, acquired, right 04/10/2022 S/P TURP 04/10/2022 BPH with obstruction/lower urinary tract symptom s 04/10/2022 Primary open angle glaucoma (POAG) of both eyes 12/13/2020 Dyslipidemia 12/13/2020 History of pulmonary embolism 10/24/2015 NODULAR PROSTATE 10/28/2007 PULSATILE TINNITUS Overview: recurrent Macular edema documented as of this encounter (statuses as of 10/07/2023) Resolved Problems Problem Noted Date Diagnosed Date Resolved Date Deep vein thrombosis (DVT) of lower extremity 11/24/19 18 07/16/2020 Venous thrombosis 08/25/2012 10/24/2015 Pulmonary embolism 08/25/2012 6 Anticoagulation management encounter 08/25/2012 10/24/2015 superintendent terminal current use of ant icoagulant therapy 08/25/2012 11/09/2014 Overview: ICD-10 update of inactive term Nodular prostate 10/28/2007 documented as of this encounter (statuses as of 10/07/2023) Immunizations Name Administration Dates Next Due COVID-19 mRNA, LNP-s, No Pre serve, 2-Dose Series (Pfizer) 11/03/2020,04/26/2020,04/05/2020 Pneumococcal Conjugate Vacc, 13 Valent (Prevnar) 11/09/2014 Pneumococcal Polysaccharide PPV23 (Pneumovax) 08/22/2005 Seasonal Influenza, Split, I IV3, With Preserve, Inj 10/24/2020(Deferred: Patient Refused) TD, Preservative Free 11/02/2008 [...] Description 11/13/2023 9:00 AM EDT Anticoagulation Pharmacy, [facility] [address] [place] [address] Pharmacist2, [facility] [address] [place] [address] 12/21/2023 9:00 AM EST Office Visit Family Practice [facility] [address] [place] [address] Tai Chirinos III, MD [address] [facility] [place] [address] 01/05/2024 9:00 AM EST Laboratory Laboratory [facility] [address] [place] [phone] [place] [facility] [address] [facility] [place] [address] 01/12/2024 12:30 PM EST Office Visit Hematology/Oncology [facility] [address] [place] [phone] Maxine Lozada MD [address] [facility] [place] [address] 03/07/2024 10:15 AM EST Imaging Radiology [facility] [address] 03/15/2024 10:00 AM EST Office Visit Urology, [facility] [address] [facility] [place] [address] Brayden Lugo MD [address] [place] [address] Pending Results Name Type Priority Associated Diagnoses Date /Time ANTINUCLEAR ANTIBODY (YENY), IFA Lab Routine Lyme disease Effusion of both knee joints YENY positive 10/07/2023 11:29 AM EDT Health Maintenance Due Date Last Done Comments Adult Wellness Visit 05/18/2005 Depression Screening 11/28/2020 11/29/2019 COVID-19 Vaccine (2022-2 4 season) 2022 11/03/2020, 04/26/2020, 04/05/2020 DTap/Tdap Vaccines (2 - [...] this encounter Medical Devices Implanted Type Area Molder Setter Device Identifier Shelf Expiration Date Model / Serial / Lot Lens Intraoc 20.0 - [id number] - [id number] Implanted:Qty: 1 on 11/11/2016 by Roni Castillo MD at [facility] Right: Eye [employer]OM[employer] 03/11/2021 [id number] / [id number] / [id number] documented as of this encounter Visit Diagnoses Diagnosis Lyme disease Effusion of both knee joints Effusion of lower leg joint YENY positive Other and unspecified nonspecific immunological findings documented in this encounter Advance Directives * [...] and were consensually agreed upon. Care Teams Sewage Disposal Engineer Relationship Specialty Start Date End Date Tai Chirinos III, MD [address] [place] [address] PCP - General 02/28/99 documented as of this encounter
--- OUTSIDE RECORDS SUMMARY | 2023-10-30 09:01 | External Medical Summary ---
Author Name Unknown Address Unknown Organization K01:[facility] [place] - [address] [facility] [address] Laboratory Report Ordering Provider Test Date Status TONY GARCIA 10/07/2023 11:02:08 Final Right knee synovial fluid

Some reference ranges and other method performance specifications have not been established for this fluid. The test results must be integrated into the clinical context for interpretation. Observation Date Value Abnormality Reference (Units ) Status SYNC TOTAL NUCLEATED CELLS FLUID 10/07/2023 11:02:08 2866 (cells/uL) Final Neutrophils/100 leukocytes in Body fluid by Manual count 10/07/2023 11:02:08 18 (%) Final Lymphocytes, Body Fluid 10/07/2023 11:02:08 56 (%) Final Monocytes/100 leukocytes in Body fluid by Manual count 10/07/2023 11:02:08 26 (%) Final SEGMENTED NEUTROPHILS (1000/UG) IN BODY FLUID ABS 10/07/2023 11:02:08 515.88 (cells/uL) Final LYMPHOCYTES (1000/UG) IN BODY FLUID ABS 10/07/2023 11:02:08 1604.96 (cells/uL) Final MONOCYTES(1000/UG) IN BODY FLUID ABS 10/07/2023 11:02:08 745.16 (cells/uL) Final Performing Location LAB[facility]ORY [facility] - [address] [facility] [address]
--- OUTSIDE RECORDS SUMMARY | 2023-10-30 09:01 | External Medical Summary ---
Author Name Unknown Address Unknown Organization K01:LABORATORY [facility] [place] - [facility] [address] [place] [address] Laboratory Report Ordering Provider Test Date Status TONY GARCIA 10/07/2023 11:02:08 Final Right knee synovial fluid

Some reference ranges and other method performance specifications have not been established for this fluid. The test results must be integrated into the clinical context for interpretation. Observation Date Value Abnormality Reference (Units ) Status Clarity of Body fluid 10/07/2023 11:02:08 Clear Clear Final Color of Body fluid 10/07/2023 11:02:08 Yellow Straw, Yellow, Colorless Final Nucleated cells [#/volume] in Body fluid by Automated count 10/07/2023 11:02:08 2866 (cells/uL) Final Erythrocytes [#/volume] in Body fluid by Automated count 10/07/2023 11:02:08 1188 (cells/uL) Final Performing Location LABORATORY [facility] [place] - [facility] [address] [place] [address]
--- OUTSIDE RECORDS SUMMARY | 2023-10-30 09:01 | External Medical Summary | Summary of Care ---
Author Name Unknown Organization [facility] Address [address] [place] [address] Phone [phone] Care Team Providers Care Outbound Sales Specialist Name Role Phone Candis GARCIA MD, John E Primary Care Provider [phone] Reason for Visit * Reason Onset Date Comments Referral 10/01/2023 Encounter Details Date Type Department Care Team (Late st Contact Info) Description 10/01/2023 Telephone Family Practice [facility] [address] [facility] [place] [address] Tai Chirinos III, MD [address] [place] [address] Referral Allergies Active Allergy Reactions Criticality Noted Date Comments Food (See Comments) Anaphylaxis High 12/06/2013 Carleen, swollen airways and shortness of breath documented as of this encounter (statuses as of 10/21/2023) Medications Medication Sig Dispensed Refills Start Date End Date Status MULTIVITAMIN/POLYSOMNOGRAPHIC TECHNICIAN AL FORMULA TABS OR 1 TABLET DAILY [...] 30 Tablet 5 03/16/2023 Active Calcium 1200 4487-2797 MG-UNIT Oral Tablet Chewable Take 1 Tablet by mouth in the morning. Active Timolol Maleate Powder Active Furosemide 40 MG Oral Tablet (Lasix)Indications :Venous stasis of lower extremity Take one pill daily in the morning for 3 days, then one a day if needed 30 Tablet 09/03/2023 Discontinued documented as of this encounter (statuses as of 10/21/2023) Active Problems Problem Noted Date Diagnosed Date Renal cyst, acquired, right 04/10/2022 S/P TURP 04/10/2022 BPH with obstruction/lower urinary tract symptom s 04/10/2022 Primary open angle glaucoma (POAG) of both eyes 12/13/2020 Dyslipidemia 12/13/2020 History of pulmonary embolism 10/24/2015 NODULAR PROSTATE 10/28/2007 PULSATILE TINNITUS Overview: recurrent Macular edema documented as of this encounter (statuses as of 10/21/2023) Resolved Problems Problem Noted Date Diagnosed Date Resolved Date Deep vein thrombosis (DVT) of lower extremity 11/24/19 18 07/16/2020 Venous thrombosis 08/25/2012 10/24/2015 Pulmonary embolism 08/25/2012 6 Anticoagulation management encounter 08/25/2012 10/24/2015 alf current use of ant icoagulant therapy 08/25/2012 11/09/2014 Overview: ICD-10 update of inactive term Nodular prostate 10/28/2007 documented as of this encounter (statuses as of 10/21/2023) Immunizations Name Administration Dates Next Due COVID-19 [...] encounter Miscellaneous Notes * Telephone Encounter - Elizabeth Machado LPN - 10/05/2023 2:20 PM EDT Referral already placed & pt already scheduled * Telephone Encounter - Tai Chirinos III, MD - 10/02/2023 7:[address] Luz what is the diagnosis for the referral * Telephone Encounter - Deangelo Esparza OSA - 10/01/2023 11:15 AM EDT Has the patient been seen for this problem? (Y/N)?: Y If No, an appt needs to be scheduled before a referral will be placed (exception: proceed with referral request if referral request is for a yearly routine appointment with speciality) Patient Name: Chivo Rosales Patient Primary care provider: Tai Chirinos III, MD Does this need to be an insurance referral (Y/N)?: N/A If Yes, does the insurance referral need to be placed into the qunb system? Name of preferred specialist: N/A Type of specialist: Day Light Relief Operator Location of specialist: N/A Specialist's Phone #: N/A Specialist's Fax #: N/A Reason for visit: N/A Date of visit: N/A Chivo is asking which Day Light Relief Operator Dr. Bob prefers. Had talked about Day Light Relief Operator at last appointment. Dr. Pleitez at [facility] or Dr. Murphy with [facility]. Dr. Pleitez [facility] phone- [phone] documented in this encounter Plan of Treatment Upcoming Encounters Date Type Department Care Team (Late st Contact Info) Description 11/13/2023 9:00 AM EDT Anticoagulation Pharmacy, [facility] [place] [address] [place] [address] Pharmacist2, [facility] [address] [facility] [place] [address] 12/21/2023 9:00 AM EST Office Visit Family Practice [facility] [address] [place], [place] [address] Tai Chirinos III, MD [address] [place] [address] 01/05/2024 9:00 AM EST Laboratory Laboratory [facility] [address] [place] [phone] [place], [facility] [address] [facility] [place] [address] 01/12/2024 12:30 PM EST Office Visit Hematology/Oncology [facility] [address] [place] [phone] Maxine Lozada MD [address] [place] [address] 03/07/2024 10:15 AM EST Imaging Radiology [facility] [address] [facility] [place] [address] 03/15/2024 10:00 AM EST Office Visit Urology, [facility] [address] [facility] [place] [address] Brayden Lugo MD [address] [place] [address] Health Maintenance Due Date Last Done Comments [...] this encounter Medical Devices Implanted Type Area Cloth Printing Utility Worker Device Identifier Shelf Expiration Date Model / Serial / Lot Lens Intraoc 20.0 - [id number] - [id number] Implanted:Qty: 1 on 11/11/2016 by Roni Castillo MD at [facility] Right: Eye [employer] 03/11/2021 [id number] / [id number] / [id number] documented as of this encounter Advance Directives [...] and were consensually agreed upon. Care Teams Outbound Sales Specialist Relationship Specialty Start Date End Date Tai Chirinos III, MD [address] [facility] [place] [address] PCP - General 02/28/99 documented as of this encounter
--- OUTSIDE RECORDS SUMMARY | 2023-10-30 09:01 | External Medical Summary | Summary of Care ---
Author Name Unknown Organization [facility] Address [address] [place] [address] Phone [phone] Care Team Providers Care Bar Tender Name Role Phone Candis GARCIA MD, Tai Kellogg Primary Care Provider [phone] Reason for Visit * Reason Comments NEW PATIENT Referred by Dr Obrien user for " abn labs, swelling in lower legs" * Evaluate & Treat - Unlimited Visits (Within 10 days (routine)) - Pending Review Specialty Diagnoses / Procedures Referred By Yvonne murdock Referred To Contact Rheumatology Diagnoses Multiple joint problems Positive YENY (antinuclear antibody) Jaylan Bob, DO [address] [place] [address] Referral ID Status Reason Start Date Expiration Date Visits Requested Visits Authorized [id number] Pending Review Specialty Services Required 10/01/[phone] Encounter Details Date Type Department Care Team (Late st Contact Info) Description 10/07/2023 10:00 AM EDT Office Visit Rheumatology [address] [place] [address] Luciano Murphy MD [facility] [employer] [place] [address] Lyme disease*; Effusion of both knee joints; YENY positive Allergies Active Allergy Reactions Criticality Noted Date Comments Food (See Comments) Anaphylaxis High 12/06/2013 Carleen, swollen airways and shortness of breath documented as of this encounter (statuses as of 10/07/2023) Medications Medication Sig Dispensed Refills Start Date End Date Status MULTIVITAMIN/INVERFORM MACHINE OPERATOR AL FORMULA TABS OR 1 TABLET DAILY [...] 30 Tablet 5 03/16/2023 Active Calcium 1200 5567-5510 MG-UNIT Oral Tablet Chewable Take 1 Tablet [...] 1 Capsule before bedtime. 28 Capsule 10/07/2023 Active Furosemide 40 MG Oral Tablet (Lasix)Indications :Venous stasis of lower extremity Take one pill daily in the morning for 3 days, then one a day if needed 30 Tablet 09/03/2023 Discontinued Hospital, Clinic, or Other Facility Administered Medication Ordered Dose Route Frequency Start Date End Date Status Lidocaine (PF) 2 % (PF) inj 20 mgIndications:Lyme disease,Effusion of both knee joints 20 mg IX ONCE 10/07/2023 10/07/2023 Ended documented as of this encounter (statuses as [...] 08/25/2012 6 Anticoagulation management encounter 08/25/2012 10/24/2015 intermediate frame tender current use of ant icoagulant therapy 08/25/2012 [...] Date Smoking Tobacco: Never Smokeless Tobacco: Never Tobacco Cessation:Counseling Given: Not Answered Alcohol Use Standard Drinks/Week Comments No 0 [...] on file documented as of this encounter Last Filed Vital Signs Vital Sign Reading Time Taken Comments Blood Pressure - - Pulse - - Temperature 36.8 C (98.2 F) 10/07/2023 9:59 AM ED T Respiratory Rate - - Oxygen Saturation - - Inhaled Oxygen Concentration - - Weight 74.8 kg (165 lb) 10/07/2023 9:59 AM EDT Height - - Body Mass Index 23.68 12/17/2022 8:05 AM EST documented in this encounter Progress Notes * Luciano Murphy MD - 10/07/2023 10:18 AM EDTAssociated Order(s): LG Joint Inj/Arthro: R knee Post-Procedure Diagnose(s): Lyme disease; Effusion of both knee joints Reason for visit: Rheumatology consultation for abnormal labs Referring Provider: Tai Chirinos III, MD HPI: Chivo Rosales is here at the request of Tai Chirinos III, MD for further evaluation of abnormal labs. Chivo Rosales pmhx is listed below. He reports that earlier this year he developed right hip pain. He was seen by ortho in [place] and had x rays that showed some arthritis of the hip. He was sent to PT and after 2 weeks of therapy this did not help. He did have a hip injection in May byDr Dumont that did not help. He saw Dr Dent and is scheduled for hip replacement in October - the . He states that the pain still comes and goes. He states that in May he also developed bilateral LE edema. He denied any redness, warmth or significnat pain. He had trouble with placing his shoes on because of the swelling. He also had bilateral knee swelling. States when the knees were bent felt like the knees would burst. His knees are not currently swollen. 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 He had a doppler study in August that did not show any clots and study does not mention salgado cysts. He saw Dr Valencia and placed on water pills. These did not help. He contacted Dr Bob and he got some labs. These came back with elevated ESR, YENY screen was positive but there was no titer listed. All other specific autoantibodies were normal. His Lyme screen did come back positive as well. He denies any known tick bites recently. Has not had Lyme testing done in the past. Because of the positive YENY was referred to us. The positive Lyme testing was not discussed. He denies any history of photosensitivity, dry mouth column pleurisy, pericarditis. He does report a history of dry eyes. He also has a history of blood clots. Musculoskeletal ROS: . Abnormal: joint pain and joint swelling . AM stiffness (hours): 0 . Pain scale (0-10): 0 to 5 Other ROS: . Constitutional: normal . Head normal . Eyes: dryness . Ears, nose, throat, mouth: normal . Cardiovascular: normal . Respiratory: normal . Gastrointestinal: normal . Genitourinary: normal . Skin: normal . Neurologic: normal All other ROS reviewed and negative Current Outpatient Medications Medication Sig Dispense Refill Enoxaparin Sodium 80 MG/0.8ML Injection Solution Prefilled Syringe (Lovenox) Inject 80 mg under theskin in the morning and 80 mg before bedtime. Take as directed by [facility] (#10 syringes in total). 8 mL 0 Timolol Maleate Powder Calcium 1200 8447-5627 MG-UNIT Oral Tablet Chewable Take 1 Tablet by mouth in the morning. Warfarin Sodium 5 MG Oral Tablet (Coumadin) TAKE 1 TABLET BY MOUTH IN THE EVENING OR [facility] 30 Tablet 5 Bromfenac Sodium (Once-Daily) 0.09 % Ophthalmic Solution Instill 1 Drop into the right eye in the morning and 1 Drop before bedtime. prednisoLONE Acetate 1 % Ophthalmic Suspension (Pred Forte) Instill 1 Drop into the right eye in the morning and 1 Drop at noon and 1 Drop in the evening and 1 Drop before bedtime. Tamsulosin HCl 0.4 MG Oral Capsule (Flomax) Take 1 Capsule by mouth in the morning. 90 Capsule 3 Calcium Carb-Cholecalciferol 600-10 MG-MCG Oral Tablet Take by mouth. Dry Eye Relief Drops 0.2-0.2-1 % Ophthalmic Solution ([place]-Aauxgyninpdg-KTB 400) Instill into eye . Dorzolamide HCl-Timolol Mal 22.3-6.8 MG/ML Ophthalmic Solution (Cosopt Ocumeter Plus) INSTILL 1 DROP INTO EACH EYE TWICE DAILY MULTIVITAMIN/MINERAL FORMULA TABS OR 1 TABLET DAILY 30 0 No current facility-administered medications for this visit. Past Medical History: Diagnosis Date Macular edema Nodular prostate Pulsatile tinnitus Venous stasis of lower extremity 09/03/2023 Past Surgical History: Procedure Laterality Date COLONOSCOPY, DIAGNOSTIC (RECTUM) 12/06/2013 diverticulosis/COLONOSCOPY FLEXIBLE PROXIMAL DIAGNOSTIC performed by Tadeo Ragland MD at [facility] INFORMATION 1988 jaw surgery INFORMATION 1987 septolasty INSERTION OF LENS PROSTHESIS RELIEVE INNER EYE PRESSURE Right 11/11/2016 right GONIOTOMY performed by Roni Castillo MD at [facility] REMOVAL OF APPENDIX 1952 Appendectomy REMOVAL OF PROSTATE (TURP) N/A 09/30/2021 TRANSURETHRAL RESECTION PROSTATE ELECTROSURGICAL performed by Brayden Lugo MD at [facility] REMOVE CATARACT, INSERT LENS PROSTH Right 11/11/2016 right EXTRACAPSULAR CATARACT REMOVAL WITH INTRAOCULAR LENS performed by Roni Castillo MD at [facility] REPAIR INGUINAL HERNIA, UNDER AGE 5 1958 Inguinal Hernia Repair,6mo-5yr,Reduc Family History Problem Relation Name Age of Onset Cancer Mother cervical-@49 Cancer Father stomach-@75 Heart Disorder Brother stent Gastro-intestinal disorder Grandmother (Maternal) liver problem-@67 Heart Disorder Grandfather (Maternal) ID-@72 Bladder Cancer Son No Known Problems Son Social History Social History Tobacco Use Smoking status: Never Smokeless tobacco: Never Vaping Use Vaping status: Never Used Substance Use Topics Alcohol use: No Drug use: No Physical Exam Filed Vitals: 10/07/23 0959 Temp: 36.8 C (98.2 F) TempSrc: Infrared Weight: 74.8 kg (165 lb) General: alert, healthy, no distress, and well nourished HENT: normocephalic, external ears normal, no mucosal erythema, no mucosal edema, moist mucosa, no oral ulcers Eye Exam: PERRL, EOMI, conjunctiva are pink and non-injected, sclera clear Neck: supple, no adenopathy, thyroid normal size, non-tender, without nodularity Lymph: no palpable lymphadenopathy Heart: regular rate & rhythm and no gallops Lungs: clear to auscultation , no rales, wheezes or rhonchi Abdomen: abdomen soft, non-tender, and normal bowel sounds Ext: Trace lower extremity edema noted on exam today Musculoskeletal Exam: Has restriction of internal range of motion of the right hip with discomfort Good range of motion of the left hip Has a moderate effusion noted right knee, smaller effusion noted left knee No pain with extension or flexion of either knee No synovitis of the hands or toes Assessment (A69.20) Lyme disease (primary encounter diagnosis) (M25.461, M25.462) Effusion of both knee joints (R76.8) EYNY positive I do wonder if he had Lyme arthritis with knee effusions that led to more lower extremity edema. Lyme arthritis can sometimes not be very painful except for with large effusions which fits his story.I doubt he has a connective tissue disease and will get a repeat YENY to see what the titer is. In my experience with these low positive screens the titer use it comes back normal. Will talk with pharmacy about interaction between doxycycline and Coumadin before prescribing. Treating for Lyme shouldnot interfere with his hip surgery in October. Did discuss a right knee aspiration, he agreed andprocedure note is listed below. The fluid obtained overall appears to be noninflammatory but will still in for fluid studies Plan 1. She procedure note below 2. Fluid sent for studies 3. Will start doxycycline once discuss with pharmacy-did speak with pharmacy after the appointment and okay to prescribe doxycycline. I did contact the patient's home and spoke with his to let him know that he can pickle solution maker doxycycline and start. 4. Will check YENY titer 5. Contact with any issues 6. Thank you for the consult and involving me in this patient's care. 7. Copy of today's note to Dr Bob, Dr Chirinos 8. Follow up as needed pending course, repeat YENY Luciano Murphy MD Department of Rheumatology [facility] [phone] I spent a total of 40-54 minutes (exact time 50 mins) on the date of service in preparation, delivery, and documentation of the care provided to Chivo Rosales excluding any time spent in the performance of separately billed services. Chivo Rosales is a 83 year old male patient. ICD-10-CM 1. Lyme disease A69.20 2. Effusion of both knee joints M25.461 M25.462 Past Medical History: Diagnosis Date Macular edema Nodular prostate Pulsatile tinnitus Venous stasis of lower extremity 09/03/2023 Temperature 36.8 C (98.2 F), temperature source Infrared , weight 74.8 kg (165 lb). LG Joint Inj/Arthro: R knee on 10/07/2023 10:53 AM Indications: joint swelling Details: 20 G needle, medial approach Medications: (1ml of 2% lidocaine) Aspirate: 30 mL yellow; sent for lab analysis Outcome: tolerated well, no immediate complications Procedure, treatment alternatives, risks and benefits explained, specific risks discussed. Consent was given by the patient. Immediately prior to procedure a time out was called to verify the correctpatient, procedure, equipment, software support engineer and site/side marked as required. Patient was prepped and draped in the usual sterile fashion. Luciano Murphy MD 10/07/2023 documented in this encounter Nursing Notes * Corey Iglesias LPN - 10/07/2023 9:55 AM EDT Chief Complaint Patient presents with NEW PATIENT Referred by Dr Bob for " abn labs, swelling in lower legs" documented in this encounter Plan of Treatment Upcoming Encounters Date Type Department Care Team (Late st Contact Info) Description 11/13/2023 9:00 AM EDT Anticoagulation Pharmacy, [facility] [address] [place] [address] Pharmacist2, [facility] [address] [place] [address] 12/21/2023 9:00 AM EST Office Visit Family Practice [facility] [address] [place] [address] Tai Chirinos III, MD 200 [facility] [place] [address] 01/05/2024 9:00 AM EST Laboratory Laboratory [facility] [address] [place] [phone] [facility] Lab [facility] [address] [facility] [place] [address] 01/12/2024 12:30 PM EST Office Visit Hematology/Oncology [facility] [address] [place] [phone] Maxine Lozada MD [address] [facility] [place] [address] 03/07/2024 10:15 AM EST Imaging Radiology [facility] [address] [facility] [place] [address] 03/15/2024 10:00 AM EST Office Visit Urology, [facility] [address] [facility] [place] [address] Brayden Lugo MD [address] [place] [id number] Pending Results Name Type Priority Associated Diagnoses Date /Time ANTINUCLEAR ANTIBODY (YENY), IFA Lab Routine Lyme disease Effusion of both knee joints YENY positive 10/07/2023 11:29 AM EDT Scheduled Orders Name Type Priority Associated Diagnoses Orde r Schedule BORRELIA SPECIES (LYME) DNA REAL TIME PCR, QUALITATIVE Lab Routine Lyme disease Effusion of both knee joints Expected: 10/07/2023, Expires: 10/06/2024 CELL COUNT WITH DIFFERENTIAL, BODY FLUID Lab Routine Lyme disease Effusion of both knee joints Expected: 10/07/2023, Expires: 10/06/2024 ANTINUCLEAR ANTIBODY (YENY), IFA Lab Routine Lyme disease Effusion of both knee joints YENY positive Expected: 10/07/2023, Expires: 10/06/2024 CELL COUNT, BODY FLUID Lab Routine Lyme disease Effusion of both knee joints Ordered: 10/07/2023 MANUAL DIFFERENTIAL, BODY FLUID Lab Routine Lyme disease Effusion of both knee joints Ordered: 10/07/2023 Health Maintenance Due Date Last Done Comments Adult Wellness Visit 05/18/2005 Depression Screening 11/28/2020 11/29/2019 COVID-19 Vaccine (4 - 2022-2 4 season) 2022 11/03/2020, 04/26/2020, 04/05/2020 DTap/Tdap [...] this encounter Medical Devices Implanted Type Area Bead Filler Device Identifier Shelf Expiration Date Model / Serial / Lot Lens Intraoc 20.0 - [id number] - [id number] Implanted:Qty: 1 on 11/11/2016 by Roni Castillo MD at [facility] Right: Eye [employer] 03/11/2021 [id number] / [id number] / [id number] documented as of this encounter Procedures Procedure Name Priority Date/Time Associated Diagnosis Comments HI ARTHROCENTESIS ASPIR&/INJ MAJOR JT/BURSA W/O US Routine 10/07/2023 10:53 AM EDT Lyme disease Effusion of both knee joints documented in this encounter Results * HI ARTHROCENTESIS ASPIR&/INJ MAJOR JT/BURSA W/O US (10/07/2023 10:53 AM EDT) Narrative Luciano Murphy MD - 10/07/2023 10:53 AM EDT Luciano Murphy MD 10/07/2023 12:37 PM LG Joint Inj/Arthro: R knee on 10/07/2023 10:53 AM Indications: joint swelling Details: 20 G needle, medial approach Medications: (1ml of 2% lidocaine) Aspirate: 30 mL yellow; sent for lab analysis Outcome: tolerated well, no immediate complications Procedure, treatment alternatives, risks and benefits explained, specific risks discussed. Consent was given by the patient. Immediately prior to procedure a time out was called to verify the correct patient, procedure, equipment, software support engineer and site/side marked as required. Patient was prepped and draped in the usual sterile fashion. Luciano Murphy MD PROCDOC FORM documented in this encounter Visit Diagnoses Diagnosis Lyme disease- Primary Effusion of both knee joints Effusion of lower leg joint YENY positive Other and unspecified nonspecific immunological findings documented in this encounter Administered Medications Inactive Administered Medications - up to 3 most recent administrations Medication Order MAR Action Action Date Dose Rate Site Lidocaine (PF) 2 % (PF) inj 20 mg 20 mg, Intra-Articular, ONCE, On Thu10/07/23 at 1130, For 1 dose Given 10/07/2023 10:49 AM EDT 20 mg Knee Right documented in this encounter Advance Directives * [...] and were consensually agreed upon. Care Teams Bar Tender Relationship Specialty Start Date End Date Tai Chirinos III, MD [address] [facility] [place] [address] PCP - General 02/28/99 documented as of this encounter
--- OUTSIDE RECORDS SUMMARY | 2023-10-30 09:02 | External Medical Summary ---
Author Name Unknown Address Unknown Organization K09:[facility] [place] [address] Laboratory Report Ordering Provider Test Date Status DARI CHAMPION 10/05/2023 09:39:29 Final Therapeutic ranges for non-o perative patients:
Prophylaxsis/treatment of DVT: (Range:2.0-3.0)
Treatment of pulmonary embolism:(Range:2.0-3.0)
Prevention of systemic embolism from:
-tissue heart valves
-acute myocardial infarction
-valvular heart disease
-atrial fibrillation
(Range: 2.0-3.0)
Mechanical prosthetic valves: (Range: 2.5-3.5) Observation Date Value Abnormality Reference (Units ) Status INR in Capillary blood by Coagulation assay 10/05/2023 09:39:29 3.1 (INR) Final Performing Location [facility] [place] [address]
--- OUTSIDE RECORDS SUMMARY | 2023-10-30 09:02 | External Medical Summary ---
Author Name Unknown Address Unknown Organization K01:[facility] [place] [facility] [address] [place] [address] Laboratory Report Ordering Provider Test Date Status NUSRATMIK 09/18/2023 13:37:42 Final Observation Date Value Abnormality Reference (Units ) Status SSA Ab 09/18/2023 13:37:42 Negative Negative Final Sjogrens syndrome-A extractable nuclear Ab [Units/volume] in Serum by Immunoassay 09/18/2023 13:37:42 0.4 <7 (U/mL) Final SSB Ab 09/18/2023 13:37:42 Negative Negative Final Sjogrens syndrome-B extractable nuclear Ab [Units/volume] in Serum by Immunoassay 09/18/2023 13:37:42 <0.4 <7 (U/mL) Final Performing Location [facility] [place] [address] [place] [address]
--- OUTSIDE RECORDS SUMMARY | 2023-10-30 09:02 | External Medical Summary ---
Author Name Unknown Address Unknown Organization [id number]:[facility]ORY [facility] [place] [address] [place] [place] [address] Laboratory Report Ordering Provider Test Date Status MIK SILVERIO 09/18/2023 13:37:42 Final Observation Date Value Abnormality Reference (Units ) Status SCL-70 extractable nuclear IgG Ab [Presence] in Serum by Immunoassay 09/18/2023 13:37:42 Negative Negative Final SCL-70 extractable nuclear IgG Ab [Units/volume] in Serum by Immunoassay 09/18/2023 13:37:42 <0.6 <7 (U/mL) Final Performing Location [facility] [place] [address] [place] [address]
--- OUTSIDE RECORDS SUMMARY | 2023-10-30 09:02 | External Medical Summary | Summary of Care ---
Author Name Unknown Organization [facility] Address [address] [place] [address] Phone [phone] Care Team Providers Care Counterintelligence Analyst Name Role Phone Candis GARCIA MD, Tai Kellogg Primary Care Provider [phone] Reason for Visit * Reason Comments Dosage Adjustment In Person (Anticoag Cl inic) Encounter Details Date Type Department Care Team (Latest Contact Info) Description 10/05/2023 9:40 AM EDT Anticoagulation Pharmacy, [facility] [address] [place] [address] Pharmacist2, [facility] [address] [place] [address] History of pulmonary embolism*; Anticoagulation management encounter Allergies Active Allergy Reactions Criticality Noted Date Comments Food (See Comments) Anaphylaxis High 12/06/2013 Carleen, swollen airways and shortness of breath documented as of this encounter (statuses as of 10/05/2023) Medications Medication Sig Dispensed Refills Start Date [...] 30 Tablet 5 03/16/2023 Active Calcium 1200 5690-4024 MG-UNIT Oral Tablet Chewable Take 1 Tablet by mouth in the morning. Active Timolol Maleate Powder Active Furosemide 40 MG Oral Tablet (Lasix)Indications:Ve nous stasis of lower extremity Take one pill daily in the morning for 3 days, then one a day if needed 30 Tablet 09/03/2023 Active Enoxaparin Sodium 80 MG/0.8ML Injection Solution Prefilled Syringe (Lovenox)Indications: History of pulmonary embolism Inject 80 mg under the skin in the morning and 80 mg before bedtime. Take as directed by anticoag clinic (#10 syringes in total). 8 mL 10/05/2023 Active documented as of this encounter (statuses as of 10/05/2023) Active Problems Problem Noted Date Diagnosed Date Renal cyst, acquired, right 04/10/2022 S/P TURP 04/10/2022 BPH with obstruction/lower urinary tract symptom s 04/10/2022 Primary open angle glaucoma (POAG) of both eyes 12/13/2020 Dyslipidemia 12/13/2020 History of pulmonary embolism 10/24/2015 NODULAR PROSTATE 10/28/2007 PULSATILE TINNITUS Overview: recurrent Macular edema documented as of this encounter (statuses as of 10/05/2023) Resolved Problems Problem Noted Date Diagnosed Date Resolved Date Deep vein thrombosis (DVT) of lower extremity 11/24/19 18 07/16/2020 Venous thrombosis 08/25/2012 10/24/2015 Pulmonary embolism 08/25/2012 09/14/201 6 Anticoagulation management encounter 08/25/2012 10/24/2015 prison current use of ant icoagulant therapy 08/25/2012 11/09/2014 Overview: ICD-10 update of inactive term Nodular prostate 10/28/2007 documented as of this encounter (statuses as of 10/05/2023) Immunizations Name Administration Dates Next Due COVID-19 [...] Progress Notes * Esau Cuevas RPh - 10/05/2023 9:36 AM EDT Images from the original note were not included. Medication Therapy Disease Management - Anticoagulation Patient: Chivo Rosales | : 1940 Subjective Patient-Reported Symptoms: Patient Findings Positives: Upcoming invasive procedure (Pt having upcoming right hip replacement. Bridge scheduled provided today to the patient (see letters for more details)) Negatives: Signs/symptoms of thrombosis, Signs/symptoms of bleeding, Change in health, Change in alcohol use, Change in activity, Missed doses, Extra doses, Change in medications, Change in diet/appetite, Bruising Objective Current Warfarin Dose As of 10/05/2023 Warfarin maintenance plan: 5 mg (5 mg x 1) every Mon, Wed, Fri; 2.5 mg (5 mg x 0.5) all other days INR Result As of 10/05/2023 INR goal: 2.0-3.0 INR used for dosin.1 (10/05/2023) Assessment & Plan Warfarin Plan As of 10/05/2023 Full warfarin instructions: 10/04: 2.5 mg; 10/24: Hold; 10/25: Hold; 10/26: Hold; 10/27: Hold; 10/28: Hold; 10/29: 7.5 mg; 10/30: 7.5 mg; Otherwise 5 mg every Mon, Wed, Fri; 2.5 mg all other days Next INR check: 11/13/2023 Repeat PT/INR in 2 week(s) Post op Weekly dose: not changed Additional Dosing Information: I spent a total of 10-19 minutes (exact time 15 mins) on the date of service in preparation, delivery, and documentation of the care provided to Chivo Rosales excluding any time spent in the performance of separately billed services or time spent by another provider/QHP. Esau Cuevas [facility] Clinical Pharmacist 10/05/2023, 9:36 AM documented in this encounter Plan of Treatment Upcoming Encounters Date Type Department Care Team (Late st Contact Info) Description 10/07/2023 10:00 AM EDT Office Visit Rheumatology [facility] [address] [facility] [place], [place] [address] Luciano Murphy MD [address] [facility] [place] [address] 11/13/2023 9:00 AM EDT Anticoagulation Pharmacy, [facility] [address] [place] [address] Pharmacist2, [facility] [address] [place] [address] 12/21/2023 9:00 AM EST Office Visit Family Practice [facility] [address] [place] [address] Tia Chirinos III, MD [address] [place] [address] 01/05/2024 9:00 AM EST Laboratory Laboratory [facility] [address] [place], [place] [phone] [place], Lab [facility] [address] [facility] [place], [place] [address] 01/12/2024 12:30 PM EST Office Visit Hematology/Oncology [facility] [address] [place] [phone] Maxine Lozada MD [address] [place], [place] [address] 03/07/2024 10:15 AM EST Imaging Radiology [facility] [address] [facility] [place] [address] 03/15/2024 10:00 AM EST Office Visit Urology, [facility] [address] [facility] [place] [address] Brayden Lugo MD [address] [place] [address] Health Maintenance Due Date Last Done Comments Adult Wellness Visit 05/18/2005 Depression Screening 11/28/2020 11/29/2019 COVID-19 Vaccine (4 - 2022-2 4 season) 2022 11/03/2020, 04/26/2020, 04/05/2020 DTaP,Tdap,and Td Vaccines (2 - Td or Tdap) 10/19/2028 10/19/2018, 11/02/2008, 10/18/1998 Pneumococcal Vaccine: [...] this encounter Medical Devices Implanted Type Area Systems Coordinator Device Identifier Shelf Expiration Date Model / Serial / Lot Lens Intraoc 20.0 - [id number] - [id number] Implanted:Qty: 1 on 11/11/2016 by Roni Castillo MD at [facility] Right: Eye [employer] 03/11/2021 [id number] / [id number] / [id number] documented as of this encounter Procedures Procedure Name Priority Date/Time Associated Diagnosis Comments INR FINGERSTICK, POINT OF CARE STAT 10/05/2023 9:39 AM EDT History of pulmonary embolism Anticoagulation management encounter documented in this encounter Results * INR FINGERSTICK, POINT OF CARE (10/05/2023 9:39 AM EDT) Fingerstick INR 3.1 INR 9:40 AM EDT [facility] 56-02 Blood 10/05/2023 9:39 AM EDT 10/05/2023 9:40 AM EDT [facility] 56- - 10/05/2023 9:40 AM EDT Therapeutic ranges for non-operative patients: Prophylaxsis/treatment of DVT: (Range:2.0-3.0) Treatment of pulmonary embolism:(Range:2.0-3.0) Prevention of systemic embolism from: -tissue heart valves -acute myocardial infarction -valvular heart disease -atrial fibrillation (Range: 2.0-3.0) Mechanical prosthetic valves: (Range: 2.5-3.5) Esau Cuevas [facility] LAB POINT O F CARE TEST DOCKED DEVICE UNSOLICITED RESULTS [facility] [address] [facility] [address] documented in this encounter Visit Diagnoses Diagnosis [...] and were consensually agreed upon. Care Teams Counterintelligence Analyst Relationship Specialty Start Date End Date Tai [facility]irinos III, [facility] [address] [facility] [address] PCP - General 02/28/99 documented as of this encounter"
--- OUTSIDE RECORDS SUMMARY | 2023-10-30 09:02 | External Medical Summary ---
Author Name Unknown Address Unknown Organization K01:LABORATORY [facility] [place] - [facility] [address] [place] [address] Laboratory Report Ordering Provider Test Date Status MIK SILVERIO 09/18/2023 13:37:42 Final Observation Date Value Abnormality Reference (Units ) Status Ron-1 extractable nuclear Ab [Presence] in Serum by Immunoassay 09/18/2023 13:37:42 Negative Negative Final result 09/18/2023 13:37:42 <0.3 <7 (U/mL) Final Performing Location LABORATORY [facility] [place] - [address] [place] [address]
--- OUTSIDE RECORDS SUMMARY | 2023-10-30 09:02 | External Medical Summary ---
Author Name Unknown Address Unknown Organization K01:LABORATORY [place] [address] [facility] [address] Laboratory Report Ordering Provider Test Date Status MIK SILVERIO 09/18/2023 13:37:42 Final Observation Date Value Abnormality Reference (Units ) Status Nuclear IgG Ab [Ratio] in Serum by Immunoassay 09/18/2023 13:37:42 Positive Abnormal Negative Final DNA double strand Ab [Presence] in Serum 09/18/2023 13:37:42 Negative Negative Final DOUBLE STRANDED DNA VALUE - [facility] 09/18/2023 13:37:42 1.1 <20 (IU/mL) Final Extractable nuclear Ab [Presence] in Serum 09/18/2023 13:37:42 Positive Abnormal Negative Final Nuclear IgG Ab [Ratio] in Serum by Immunoassay 09/18/2023 13:37:42 3.3 <0.7 (Ratio) Final Screening is based on detect ion of the following antibodies: dsDNA, U1-SURGICAL SERVICES ASST (RNP70, A, C), SS-A/Ro, SS-B / La, Shyann-1, Scl-70, Centromere B proteins and Sm proteins. In conjunction with clinical findings, this can aid in the diagnosis of systemic lupus erythematosous (SLE), mixed connective tissue disease (MCTD), Sjogren's syndrome, scleroderma and polymyositis/dermatomyositis.
However, a negative result does not rule out systemic rheumatic or other autoimmune disease. If clinically suspected, further evaluation and testing may be necessary. Please consult with Rheumatology Department.
Methodology: Fluorescent Enzyme Immunoassay. Performing Location LABORATORY [place] [address] [facility] [address]
--- OUTSIDE RECORDS SUMMARY | 2023-10-30 09:02 | External Medical Summary | Summary of Care ---
Author Name Unknown Organization [facility] Address [address] [place] [address] Phone [phone] Care Team Providers Care Oracle Software Engineer Name Role Phone Candis GARCIA MD, John E Primary Care Provider [phone] Reason for Visit * Reason Onset Date Comments Referral 10/01/2023 Encounter Details Date Type Department Care Team (Late st Contact Info) Description 10/01/2023 Telephone Family Practice [facility] [address] [facility] [place] [address] Tai Chirinos III, MD [address] [place] [address] Referral Allergies Active Allergy Reactions Criticality Noted [...] 30 Tablet 5 03/16/2023 Active Calcium 1200 4097-4908 MG-UNIT Oral Tablet Chewable Take 1 Tablet by mouth in the morning. Active Timolol Maleate Powder Active Furosemide 40 MG Oral Tablet (Lasix)Indications:Ve nous stasis of lower extremity Take one pill daily in the morning for 3 days, then one a day if needed 30 Tablet 09/03/2023 Active documented as of this encounter (statuses [...] 08/25/2012 6 Anticoagulation management encounter 08/25/2012 10/24/2015 half-way current use of ant icoagulant therapy 08/25/2012 [...] MD - 10/02/2023 7:[address] uLz what is the diagnosis for the referral [...] referral need to be placed into the AUTOFACT system? Name of preferred specialist: N/A Type of specialist: Control Analyst Location of specialist: N/A Specialist's Phone #: N/A Specialist's Fax #: N/A Reason for visit: N/A Date of visit: N/A Chivo is asking which Control Analyst Dr. Bob prefers. Had talked about Control Analyst at last appointment. Dr. Pleitez at [facility] or Dr. Murphy with [facility]. Dr. Pleitez [facility] phone- [phone] documented in this encounter Plan of Treatment Upcoming Encounters Date Type Department Care Team (Late st Contact Info) Description 10/07/2023 10:00 AM EDT Office Visit Rheumatology [place] [id number] [place] [address] Luciano Mruphy MD [address] [place] [address] [place] [address] 11/13/2023 9:00 AM EDT [facility] [address] [place] [address] Pharmacist2, [facility] [address] [place] [address] 12/21/2023 9:00 AM EST Office Visit Family Practice [facility] [address] [place] [address] Tai Chirinos III, MD [address] [place] [address] 01/05/2024 9:00 AM EST Laboratory Laboratory [facility] [address] [place] [phone] [place], Lab [facility] [address] [place] [address] 01/12/2024 12:30 PM EST Office Visit Hematology/Oncology [facility] [address] [place] [phone] Maxine Lozada MD [address] [place] [address] 03/07/2024 10:15 AM EST Imaging Radiology [facility] [address] [facility] [place] [address] 03/15/2024 10:00 AM EST Office Visit Urology, [facility] [address] [facility] [place] [address] Brayden Lugo MD [address] [place] [address] Health Maintenance Due Date Last Done Comments Adult Wellness Visit 05/18/2005 Depression Screening 11/28/2020 11/29/2019 COVID-19 Vaccine ( - 2022-2 4 season) 2022 11/03/2020, 04/26/2020, [...] this encounter Medical Devices Implanted Type Area Duralumin Mechanic Device Identifier Shelf Expiration Date Model / Serial / Lot Lens Intraoc 20.0 - [id number] - [id number] Implanted:Qty: 1 on 11/11/2016 by Roni Castillo MD at [facility] Right: Eye [employer] 03/11/2021 [id number] / [id number] / [id number] documented as of this encounter Advance Directives [...] and were consensually agreed upon. Care Teams Oracle Software Engineer Relationship Specialty Start Date End Date Tai Chirinos III, MD [address] [place], [place] [address] PCP - General 02/28/99 documented as of this encounter
--- OUTSIDE RECORDS SUMMARY | 2023-10-30 09:02 | External Medical Summary ---
Author Name Unknown Address Unknown Organization K01:LABORATORY [facility] [place] - [address] [place] [address] Laboratory Report Ordering Provider Test Date Status MIK SILVERIO 09/18/2023 13:37:42 Final Observation Date Value Abnormality Reference (Units ) Status Centromere Ab [Presence] in Serum 09/18/2023 13:37:42 Negative Negative Final Centromere Ab [Units/volume] in Serum 09/18/2023 13:37:42 0.4 <7 (U/mL) Final Performing Location LABORATORY [facility] [place] - [address] [place] [address]
--- NOTE | 2023-10-30 09:15 | Operative Report ---
PG Post Operative Report Pre & Post Diagnosis Operation Date: 10/30/23 08:00 Pre-Op Diagnosis: Degenerative Joint Disease Right Hip Post-Op Diagnosis: Degenerative Joint Disease Right Hip I identified the patient and participated in the time-out.: Yes Procedure Operation Date: 10/30/23 08:00 Actual Procedures p Right Anterior Total Hip Arthroplasty(Right) - Luciano Dent DO Surgeon Luciano Dent DO School Bus Monitor Lorenza Mederos PA-C Estimated Blood Loss 200 Findings Consistent with Post-Op Diagnosis Specimens Right femoral head Description of Procedure Implants used I used a ZimmerBiomet total hip arthroplasty system with a size 4 standard offset Avenir Complete stem, a 54 mm G7 cup with a 25mm screw, an E1 po lyethylene liner, a 40 mm ceramic head with a +2.5 neck. Chivo arrived at the hospital for the above procedure. He was seen in the preoperative holding area and the operative extremity was identified and signed. He was given a spinal anesthetic, a preoperative antibiotic, and TXA. He was then taken back to the operating room and laid on the table in the supine position. He was given basic sedation. The operative leg was secured to a Puristst leg positioner. The hip was then prepped and draped in sterile fashion. A timeout was done and the patient and the operative extremity was properly identified. An anterior approach was used. Dissection was taken down through the fascia and the tensor muscle belly was retracted laterally and the rectus was retracted medially. The circumflex vessels were identified and ligated. The capsule was then incised and tagged for later repair. The femoral neck was then cut and the femoral head was removed. The acetabulum was exposed. Time was spent doing a complete circumferential labral release. Sequential reaming of the acetabulum up to a size 53 reamer was done. Final reamings were done under fluoroscopy to ensure appropriate version. A Biomet 54 mm G7 cup was then impacted into place. A single 25 mm screw was placed. The E1 polyethylene liner was then snapped into place. Surrounding soft tissues were then injected with 100 cc of an orthopedic pain control cocktail. The proximal femur was then exposed. Sequential broaching up to a size 4 broach was done. Off that broach a size 40 head with a +2.5 neck was trialed. The hip was reduced and fluoroscopic images showed anatomic alignment of the implants in acceptable length. The broach was removed. The final size 4 standard offset Avenir Complete stem was then impacted into place. A ceramic 40 mm head with a +3.5 neck was then impacted onto the stem and the hip was reduced. Final fluoroscopic images showed anatomic alignment of the hip. The capsule was then closed with #1 Vicryl suture. A dilute betadyne lavage was then done for 3 minutes. The joint was then irrigated with normal saline solution. The fascia was closed with #1 PDS suture. Skin was closed with 2-0 Vicryl, татьяна, and a Silverlon dressing. He was then transferred to a hospital bed and taken to the post anesthesia care unit in stable condition. He tolerated the procedure well. Lorenza Mederos PA-C, was present for the entire procedure. He was critical for patient positioning, prepping, draping, retraction exposure, wound closure and application of sterile dressing. I attest to the content of the Intraoperative Record and any orders documented therein. Any exceptions are noted below.
[2023-10-30] MEDS ORDERED: HYDROmorphone INJ 0.5 MG/0.5 ML SYR IV PRN (09:30)
[2023-10-30] MEDS ORDERED: METOCLOPRAMIDE HCL INJ 5 MG/ML 2 ML VIAL IV PRN (09:30)
[2023-10-30] MEDS ORDERED: MAGNESIUM HYDROXIDE SUSP 30 ML UDC PO PRN (09:30)
[2023-10-30] MEDS ORDERED: oxyCODONE HCL IR 5 MG TAB (IMMEDIATE RELEASE) PO PRN (09:30)
[2023-10-30] MEDS ORDERED: ACETAMINOPHEN 1,000 MG/100 ML VIAL IV PRN (09:30)
[2023-10-30] MEDS ORDERED: diphenhydrAMINE Capsule 25 MG CAP PO PRN (09:30)
[2023-10-30] MEDS ORDERED: NALOXONE HCL 0.4 MG/1 ML VIAL/CARP IV PRN (09:30)
[2023-10-30] MEDS ORDERED: bisacodyL 10 MG SUPP PR PRN (09:30)
[2023-10-30] MEDS ORDERED: HYDROmorphone INJ 1 MG/ML SYRINGE IV PRN (09:30)
[2023-10-30] MEDS ORDERED: FUROSEMIDE 40 MG TAB PO PRN (09:42)
--- NOTE | 2023-10-30 10:10 | Fluoroscopy Report ---
FL hip RT 1V CLINICAL HISTORY: RIGHT ANTERIOR HIP COMPARISON STUDY: None. FLUOROSCOPY TIME: 11 seconds. FLUOROSCOPY IMAGES: 1 Ka,r: 1.8 mGy FINDINGS: There is a right total hip arthroplasty. The hardware is intact. No fracture or dislocation . IMPRESSION: Fluoroscopic assistance as above. ACT 112: Negative or not required by law. Electronically signed by: Emre Singh M.D. 10/30/2023 10:08 AM
[2023-10-30] MEDS: SODIUM CHLORIDE 0.9% 1,000 ML IV SCH (10:40)
--- NOTE | 2023-10-30 10:45 | XRay Report ---
XR hip 1V RT w pelvis HISTORY: 83 years-old Male IN PACU - Post Surgical right hip arthroplasty COMPARISON: 08/26/2023 TECHNIQUE: AP view of the pelvis with cross table lateral view of the right hip FINDINGS: Mild osteoarthritis of the left hip. No acute fracture or dislocation. Satisfactory alignment of the right hip arthroplasty. Lateral skin татьяна are present along with expected postoperative soft tissu e swelling and deep tissue air. Arterial calcifications. IMPRESSION: Right hip arthroplasty with expected postoperative changes. ACT 112: Negative or not required by law. The above report was generated using voice recognition software. It may contain grammatical, syntax o r spelling errors. Electronically signed by: Art Wells M.D. 10/30/2023 10:43 AM
[2023-10-30] MEDS ORDERED: WARFARIN SOD 10 MG TAB PO ONE (11:30)
[2023-10-30] MEDS: KETOROLAC TROMETHAMINE 15 MG/ML VIAL IV SCH (11:53)
[2023-10-30] MEDS: WARFARIN SOD 7.5 MG TAB PO STA (14:32)
--- NOTE | 2023-10-30 14:37 | Anesthesiology Progress Note ---
Date of Service October 30, 2023 Anesthesia Post Procedure Vital Signs Vital Signs: Temp Pulse Pulse Resp BP Pulse Ox O2 Del Method 10/30/23 13:41 36.6 C 91 H 16 151/79 H 98 Room Air 10/30/23 12:38 36.3 C L 100 H 18 154/76 H 96 Room Air 10/30/23 11:34 36.3 C L 88 16 142/67 H 96 Room Air 10/30/23 11:01 36.4 C L 88 16 157/78 H 97 Room Air 10/30/23 10:25 85 18 132/65 98 Room Air 10/30/23 10:10 36.3 C L 83 14 129/71 94 Room Air 10/30/23 10:01 36.4 C L 89 16 140/78 98 Room Air 10/30/23 10:00 84 16 124/73 94 Room Air 10/30/23 09:50 89 15 122/74 95 Room Air 10/30/23 09:40 92 H 18 128/82 98 Room Air 10/30/23 09:32 36.3 C L 102 H 22 95/70 L 97 Room Air 10/30/23 07:05 36.5 C 72 18 186/89 H 97 Room Air Transfer of Care Handoff Completed per policy Notes Mental Status: alert / awake / arousable and participated in evaluation Patient Amnestic to Procedure: Yes Nausea / Vomiting: adequately controlled Pain: adequately controlled Airway Patency, RR, SpO2: stable & adequate BP & HR: stable & adequate Hydration State: stable & adequate Neuraxial Anesthesia: was administered and sensory block is resolving Anesthetic Complications: no major complications apparent and Pt Satisfied with anesthetic care
[2023-10-30] MEDS: prednisoLONE acetate 1% OP SUSP 5 ML BTL OPR SCH (20:41)
[2023-10-30] MEDS: DOCUSATE SODIUM 100 MG CAP PO SCH (20:41)
[2023-10-30] MEDS: DOXYCYCLINE HYCLATE 100 MG CAP PO SCH (20:41)
[2023-10-30] MEDS: SENNA 8.6 MG TAB PO SCH (20:41)
[2023-10-30] MEDS: DORZOLAMIDE/TIMOLOL 22.3/6.8MG/ML 10 ML BTL OPB SCH (20:41)
[2023-10-31 06:54] LABS: INR 1.5 (0.9-1.1); Prothrombin Time 15.7 Seconds (9.0-12.0)
--- NOTE | 2023-10-31 07:00 | Orthopedic Progress Note ---
Date of Service October 31, 2023 Assessment & Plan (1) Status post right hip replacement: Overall he is doing very well. He is not having much pain in the right hip. He will be seen by physical therapy today for ambulation and range of motion exercises. He is on Coumadin and Lovenox for DVT prophylaxis. He can be discharged home later today. He will follow-up with orthopedics in 2 weeks. Izabel Wal[place]on was seen and examined at bedside this morning. Overall he is doing fairly well. He is not having much pain in the right hip. He has been up and ambulating to the bathroom. He has no complaints.. Review of Systems All systems reviewed & are unremarkable except as noted in HPI & below. Physical Exam On physical examination the right hip, the dressing is clean and dry. His leg is out full extension. He has active dorsiflexion plantarflexion of his right ankle.. Results & Data Results & Data Laboratory Results . Diagnostic Findings Postoperative x-rays of the right hip show the prosthesis to be in anatomic alignment without any evidence of fracture, dislocation, or loosening.. PG Care Time/CCT Total # of Minutes Spent Total Time Spent with Patient: Total time spent is greater than 50% in coordination of care (as documented) at patient's floor/unit and/or counseling patient: Coding Level of Care Code 98520 Post Operative Follow-Up Diagnoses Status post right hip replacement Z96.641
--- NOTE | 2023-10-31 07:01 | Discharge Summary ---
Date of Service October 31, 2023 Admission HPI (Per Admitting) Chivo is a pleasant 83-year-old male who has been dealing with chronic increasing right hip pain. There is times where he cannot walk. Other times, it does not hurt him too bad. It has been getting worse and worse. He had injections at [facility] into his hip joint. The injection did not help much. It is to the point where it is really affecting his quality of life. 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 After failing conservative treatment, he has elected to proceed with a right anterior total of arthroplasty. Admission Exam (Per Admitting) On physical examination of the right hip, he has decreased range of motion. He is pain with forced internal and external rotation. All of his pain is located in his groin.. Principal Diagnosis Same as "Discharge Diagnosis" noted below under Discharge Instructions. Discharge Exam On physical examination the right hip, the dressing is clean and dry. His leg is out full extension. He has active dorsiflexion plantarflexion of his right ankle.. Discharge Data Consultations 10/30/23 09:41 Consult Anticoagulation Clinic Routine Procedures Performed Operation Date: 10/30/23 08:00 Actual Procedures p Right Anterior Total Hip Arthroplasty(Right) - Luciano Dent DO Ordered Studies 10/30/23 08:00 FL hip RT 1V Routine Hospital Course (1) Status post right hip replacement: On October 30, 2023 Chivo arrived at [facility] and underwent a right hip replacement without complication. He had a spinal anesthetic. Postoperatively he was started on Coumadin and Lovenox for DVT prophylaxis and transferred to the general orthopedic floors. His hospital course was uneventful. On postop day #1, his vital signs were stable and his pain was well-controlled. He was able to participate well with physical therapy doing ambulation and range of motion exercises. He was then discharged to home. He will follow with orthopedics in 2 weeks. PG Care Time/CCT Total # of Minutes Spent Total Time Spent with Patient: Total time spent is greater than 50% in coordination of care (as documented) at patient's floor/unit and/or counseling patient: Discharge Plan Discharge Items Patient Disposition: Home - Self-Care Reason For Visit: Degenerative Joint Disease Right Hip Discharge Diagnosis: Right hip replacement Activity: Per Instructions section Non-emergency contact: Surgeon Call non-emergency contact if: your wound has increased redness and your wound has increased drainage Follow-up/Referrals: Tai Chirinos MD [Primary Care Provider] - Diet: Regular Addtl Attending Provider Instructions: Activity and Therapy Recommendations: * If you are using [facility] then therapy will be provided at your home until they feel you have accomplished all of your goals. * If you are using [facility] then Physical Therapy will be provided until they feel you are ready to start Outpatient Physical Therapy. * If you are not using home therapy then Outpatient Physical Therapy should start about 3-5 days from your day of surgery. Therapy will last about 6-10 weeks * You were shown a series of exercises in the hospital. Do these exercises three times each day including the exercises you were shown in physical therapy. * Get up and walk several times each day.~ For the first four weeks, try not to stand or walk for more than one hour at a time. If you do stand or walk for more than one hour, you will not hurt anything, but your leg will likely swell.~~ * As you feel comfortable, you may change from the walker or crutches to a cane and~then to independent walking. Medications: * Narcotic You will likely be sent home from the hospital with a prescription for the narcotic pain medication that worked best throughout your stay. * Cefadroxil -take the antibiotic twice a day for 10 days to help prevent infection. * Continue taking the Coumadin and Lovenox as prescribed. * Other medications may be prescribed for specific circumstances. If you have any questions, please call the office at . * Resume previous home medications unless otherwise instructed TEDs/Elastic Stockings: The white elastic stockings help limit swelling and prevent blood clots from forming in your legs. The more you wear them, the more they work. Wear them for six weeks. Dressing Care: Leave the Silverlon dressing in place for 7 days. After 7 days you may remove the dressing. If the incision is not draining then you may leave the татьяна open to air. If there is a little bit of drainage or if the татьяна are getting stuck on your clothing then cover the incision with a dry dressing. The татьяна will be removed at your 2 week follow-up appointment. Showering: You may shower with the Silverlon dressing in place. Do not let the shower spray hit the dressing directly. Pat the Silverlon dressing dry. If the dressing becomes wet underneath, then simply remove the dressing. Keep the incision dry until you are 7 days out from the day of surgery. After 7 days you may remove the Silverlon dressing and shower with the татьяна exposed. Let soapy water run over the татьяна and pat them dry. Do not scrub or soak the incision. Things To Watch For: * Drainage from the incision site that occurs more than one week after your surgery. * Increased redness at the incision site. * Fever above 102 degrees Fahrenheit. * Unusual chest pain or shortness of breath. * Call [facility] at with any of the above problems Follow-Up Visit: Follow-up with Dr. Dent's PA (Luciano Boland) 2-3 weeks after your day of surgery. He will remove your татьяна and answer any questions. If you have any additional questions or concerns, Dr Dent is usually in the office at the same time and will be available An appointment was probably scheduled when you signed-up for surgery in the office. If you have any questions call Office Instructions: More detailed instructions as well as Frequently Asked Questions were provided in a folder by our office when you signed-up for surgery. Please review these instructions when you get home. If you have any further questions or concerns, please feel free to call the office at [phone] Pending Studies at Discharge: No Stand-Alone Forms: [facility], Smoking Cessation Medications and DC Order Prescriptions: New oxycodone 5 mg Tablet 5 mg PO Q4H PRN (Reason: pain) Qty: 30 0RF cefadroxil 500 mg capsule 500 mg PO BID 10 Days Qty: 20 0RF Continued multivitamin Tablet 1 tab PO DAILY Qty: 0 tamsulosin 0.4 mg capsule 0.4 mg PO QAM warfarin 5 mg tablet 5 mg PO UD Rx Instructions: Mon, Wed, Fri 5mg; 2.5mg all other days of the week dorzolamide-timolol 22.3-6.8 mg/mL drops 1 drp OPB BID furosemide 40 mg Tablet 40 mg PO QAM PRN (Reason: Fluid Retention) Patient Comments: only a temporary medication prednisolone acetate 1 % drops,suspension 1 drp OPR BID Calcium 600 + D(3) 600 mg-5 mcg (200 unit) Capsule 1 cap PO DAILY doxycycline calcium 1 cap PO BID enoxaparin [Lovenox] 80 mg/0.8 mL Syringe 80 mg subcut BID Discharge Orders: Discharge Order (Routine); Ordered 10/31/23 Ordered By: Luciano Dent Admission Data Admit Date/Time: 10/30/23 09:31 Attending Provider: Luciano Dent Admit Provider: Luciano Dent Primary Care Provider: Tai Chirinos Other Providers: Elvin Flood; Eze Santiago; Tadeo Bradley; Adriano Andujar; Jonathan Bryan; Fareed Orta Jr; Jermaine Vigil; Samia Mills; Kasia Lu; Esau South; Esau Rubio; Jack Mckay; Sultana Torres; Kraig Gaspar; Mague Grimm; Francesco Santizo; Jeermy Son; Javad Soto
[2023-10-31] MEDS: CALCIUM 600MG + VIT D 400 IU TAB PO SCH (08:20)
[2023-10-31] MEDS: MULTIVITAMIN TAB PO SCH (08:20)
[2023-10-31] MEDS: TAMSULOSIN HCL 0.4 MG CAP PO SCH (08:20)
[2023-10-31] MEDS: dexAMETHasone 4 MG TAB PO SCH (08:20)
[2023-10-31] MEDS ORDERED: NON-FORMULARY MEDICATION (Multivitamin Tablet) PO SCH (09:00)
[2023-10-31 09:38] VITALS: BP 140/74; PULSE 78; RESP 18; TEMP 98.2; O2SAT 98
[2023-10-31] MEDS ORDERED: WARFARIN SOD 7.5 MG TAB PO ONE (16:00)
[2023-10-31] MEDS ORDERED: ENOXAPARIN 80 MG/0.8 ML SYR SQ ONE (20:00)
== END 2023-10-31 11:39 | disposition home or self-care (01) ==
LOC: ASU 06:27 → 3E 06:27